=== PATIENT | female | born 1935 | race Caucasian/White ===

== ENCOUNTER 2020-06-30 11:36 | Inpatient (IN) | payer MEDICARE ==
[~2020-06-30] VITALS: Ht 170.2 cm; Wt 56.7 kg
[2020-06-30 12:12] VITALS: BP 153/66
[2020-06-30 12:20] LABS: APPEARANCE,URINE CLEAR (CLEAR); BILIRUBIN,URINE NEGATIVE (NEGATIVE); UA COLOR YELLOW (YELLOW); UROBILINOGEN,URINE NORMAL (NEGATIVE)
[2020-06-30 12:23] LABS: BASOPHIL % 0.5 % (0.0-0.2); EOSINOPHIL # 0.1 10^3/uL (0.0-0.2); EOSINOPHIL % 2.7 % (0.0-5.0); LYMPHOCYTES # 1.13 10^3/uL1 (1.0-4.8); LYMPHOCYTES % 30.8 % (24.0-44.0); MEAN CORP HGB 31.4 pg (26-34); MONOCYTES # 0.3 10^3/uL (0.3-0.8); MONOCYTES % 6.8 % (5.0-12.0); NEUTROPHIL # 2.2 10^3/uL (1.8-7.7); NEUTROPHILS % 59.2 % (41.0-85.0); PLATELET COUNT 191 10^3/uL (150-400); RED CELL DISTRIBUTION WIDTH 11.9 % (11.5-14.5)
--- NOTE | 2020-06-30 12:25 | PCM.EKG ---
[facility] Test Date: 2020-06-30 Test Time: 12:22:45 Pat Name: ELBERT ROMERO Department: Room: 213 Gender: F Dispatcher Radio: ZACK : [id number] Requested By: MAIRA SHERWOOD Order Number: [id number] Reading MD: Maira SHERWOOD Measurements Intervals [place] Rate: 61 P: WI: 287 QRS: -49 QRSD: 113 T: 45 QT: 454 QTc: 458 Interpretive Statements Atrial-paced rhythm LAD, consider left anterior fascicular block Left ventricular hypertrophy Anterior Q waves, possibly due to LVH No previous ECG available for comparison Electronically Signed On 07-01-2020 1:09:20 [employer]ENT[employer] by Maira SHERWOOD Please click the below link to view image of tracing.
--- NOTE | 2020-06-30 12:35 | NUR ---
ARRIVAL PT ARRIVED TO ED FOR MED CLEARANCE. FAMILY WANT PT TO BE ADMITTED FOR HX OF BIPOLAR AND DEPRESSION. BEDSIDE MONITOR APPLIED. VITALS STABLE. NAD NOTED.
--- NOTE | 2020-06-30 12:41 | ER.PDOC ---
General Chief Complaint: Medical Clearance Stated Complaint: MEDICAL CLEARANCE Time seen by MD: 12:34 Source: patient Exam Limitations: no limitations History of Present Illness Initial Comments Medical clearance to go to [facility] for delusional disorder for 2 Months. Severity: moderate Associated Symptoms: Paranoid Allergies: Coded Allergies: Penicillins (Verified Allergy, Unknown, unknown, 06/30/20) Sulfa (Sulfonamide Antibiotics) (Verified Allergy, Unknown, 06/30/20) celecoxib (Verified Allergy, Unknown, 06/30/20) Home Meds Reported Medications Divalproex Sodium (DEPAKOTE ER) 250 Mg Tab.er.24h, 2000 MG PO DAILY24, TABLET 06/30/20 Venlafaxine Hcl (EFFEXOR XR) 37.5 Mg Cap.er.24h, 75 MG PO DAILY24, CAPSULE 06/30/20 Multivitamin (Multi Vitamin Daily) 1 Each Tablet, 1 TAB PO QD for 30 Days, #30 TAB 0 Refills 06/30/20 Aspirin (ASPIRIN) 81 Mg Tab.chew, 1 TAB PO DAILY, #90 TAB 3 Refills 06/30/20 Furosemide (FUROSEMIDE) 20 Mg Tablet, 20 MG PO 3x weekly, TAB 06/30/20 Metoprolol Tartrate 25MG (LOPRESSER 25MG) 25 Mg Tablet, 1 TAB PO BID, #60 TAB 5 Refills 06/30/20 Docusate Sodium (DOCUSATE SODIUM) 100 Mg Capsule, 1 CAP PO BID for constipation for 15 Days, #30 CAP 0 Refills 06/30/20 Amlodipine Besylate (AMLODIPINE BESYLATE) 10 Mg Tablet, 1 TAB PO DAILY, #90 TAB 3 Refills 06/30/20 Venlafaxine Hcl (VENLAFAXINE HCL) 75 Mg Tablet, 75 MG PO HS, TAB 06/30/20 Simvastatin (SIMVASTATIN) 40 Mg Tablet, 1 TAB PO HS, #90 TAB 3 Refills 06/30/20 Gabapentin (NEURONTIN) 300 Mg Capsule, 1 CAP PO HS, #90 CAP 06/30/20 Memantine Hcl (NAMENDA) 10 Mg Tablet, 21 TAB PO DAILY24, #180 TAB 3 Refills 06/30/20 Donepezil Hcl (DONEPEZIL HCL) 10 Mg Tablet, 1 TAB PO DAILY, #90 TAB 3 Refills 06/30/20 Levothyroxine Sodium (LEVOTHYROXINE SODIUM) 75 Mcg Tablet, 1 TAB PO DAILY, #90 TAB 3 Refills 06/30/20 Past Medical History Medical History: cardiac problems, high cholesterol, hypertension, renal disease, thyroid disease Surgical History: hysterectomy, knee, pacemaker/ICD Social History Alcohol Use: none Drug Use: none Review of Systems Constitutional: no symptoms reported EENTM: no symptoms reported Respiratory: no symptoms reported Cardiovascular: no symptoms reported Gastrointestinal: no symptoms reported Genitourinary: no symptoms reported Psychiatric/Neurological: see HPI All Other Systems: Reviewed and Negative Physical Exam General Appearance: No acute distress, Alert Neck: Non-Tender, Full Range of Motion, Supple, Normal Inspection Respiratory: chest non-tender, lungs clear, normal breath sounds, no respiratory distress, no accessory muscle use Cardiovascular: Normal Peripheral Pulses, Regular Rate, Rhythm, No Edema, No Gallop, No JVD, No Murmur Gastrointestinal: Normal Bowel Sounds, No Organomegaly, No Pulsatile Mass, Non Tender, Soft Extremities: Non-Tender, Normal Range of Motion, No Evidence of Trauma, No Edema Neurological/Psychiatric: Alert, Normal Mood/Affect, Calm, steak sauce maker II-XII NML as Tested, Oriented x 3 Appearance/Memory/Insight: Appropriate Appearance, Appropriate Insight, Neat, No Memory Impairment Behavior/Eye Contact/Speech: Cooperative, Good Eye Contact, Normal Speech Thoughts/Hallucinations: Normal Thought Pattern, No Apparent Hallucination, Delusions Skin: Normal Color Results/Orders Results/Orders Orders - MAIRA SHERWOOD MD Cbc With Auto Diff (06/30/20 12:06) Comprehensive Metabolic Panel (06/30/20 12:06) Urinalysis (06/30/20 12:06) Thyroid Stimulating Horm(Ml) (06/30/20 12:06) Drug Scrn Med W Confirmation (06/30/20 12:06) Vitamin D, 25 Hydroxy (06/30/20 12:06) RPR (06/30/20 12:06) Hemoglobin A1c(Ml) (06/30/20 12:06) Lipid Panel(Ml) (06/30/20 12:06) Troponin I (06/30/20 12:06) Creatine Kinase (06/30/20 12:06) Creatine Kinase Mb (06/30/20 12:06) Ekg-Routine (06/30/20 12:06) Vital Signs Date Time Temp Pulse Resp B/P (MAP) Pulse Ox O2 Delivery O2 Flow Rate FiO2 06/30/20 12:12 96.7 70 18 100 06/30/20 12:12 96.7 70 18 06/30/20 12:12 96.7 70 18 153/66 (95) 100 Room Air Laboratory Tests Test 06/30/20 12:08 06/30/20 12:10 06/30/20 12:15 Urine Collection Type UNKNOWN Urine Color YELLOW (YELLOW) Urine Appearance CLEAR (CLEAR) Urine Bilirubin NEGATIVE MG/DL (NEGATIVE) Urine Ketones NEGATIVE (NEGATIVE) Urine Specific [place] 1.020 (1.005-1.035) Urine pH 5.5 (5.0-6.0) Urine Protein NEGATIVE (NEGATIVE) Urine Urobilinogen NORMAL (NEGATIVE) Urine Nitrate NEGATIVE (NEGATIVE) Urine Leukocyte Esterase 25 /uL TRACE (NEGATIVE) Urine Blood MODERATE (NEGATIVE) Urine RBC 2-5 RBC/HPF (NONE SEEN) Urine WBC 0-2 WBC/HPF (0-2) Urine Squamous Epithelial Cells FEW #/HPF (FEW) Urine Bacteria NONE SEEN (NONE SEEN) Urine Glucose NORMAL (NEGATIVE) Urine Opiates Screen NEGATIVE (c/o300ng/mL) Urine Methadone Screen NEGATIVE (c/o300ng/mL) Urine Barbiturates Screen NEGATIVE (c/o200ng/mL) Urine Phencyclidine Screen NEGATIVE (c/o 25ng/mL) Ur Amphetamine/Methamphetamine NEGATIVE (ib8251qs/mL) Urine MDMA Screen (Ecstasy) NEGATIVE (c/o300ng/mL) Urine Benzodiazepines Screen NEGATIVE (c/o200ng/mL) Urine Cocaine Metabolite Screen NEGATIVE (c/o300ng/mL) Ur Tetrahydrocannabinol (THC) Scrn NEGATIVE (c/o 50ng/mL) White Blood Count 3.7 10^3/uL (4.5-11.0) L Red Blood Count 3.88 10^6/uL (4.00-5.20) L Hemoglobin 12.2 g/dL (12.0-15.0) Hematocrit 36.6 % (36.0-46.0) Mean Corpuscular Volume 94.3 fL (78-100) Mean Corpuscular Hemoglobin 31.4 pg (26-34) Mean Corpuscular Hemoglobin Concent 33.3 g/dL (33-36.5) Red Cell Distribution Width 11.9 % (11.5-14.5) Platelet Count 191 10^3/uL (150-400) Mean Platelet Volume 9.4 fL (7.8-11.0) Neutrophils (%) (Auto) 59.2 % (41.0-85.0) Lymphocytes (%) (Auto) 30.8 % (24.0-44.0) Monocytes (%) (Auto) 6.8 % (5.0-12.0) Neutrophils # (Auto) 2.2 10^3/uL (1.8-7.7) Lymphocytes # (Auto) 1.13 10^3/uL1 (1.0-4.8) Monocytes # (Auto) 0.3 10^3/uL (0.3-0.8) Absolute Immature Granulocyte (auto 0 10^3 u/L (0-2) Absolute Eosinophils (auto) 0.1 10^3/uL (0.0-0.2) Immature Granulocytes % 0.00 % (0.00-0.50) Eosinophils % 2.7 % (0.0-5.0) Basophils % 0.5 % (0.0-0.2) H Basophils # 0.0 10^3/uL (0.0-0.1) Sodium Level 140 mmol/L (132-145) Potassium Level 4.2 mmol/L (3.6-5.2) Chloride Level 106.0 mmol/L (96-109) Carbon Dioxide Level 25.3 mmol/L (20.0-32) Anion Gap 12.9 Blood Urea Nitrogen 37 mg/dL (7-18) H Creatinine 2.11 mg/dL (0.59-1.40) *H Estimated GFR () 27.1 (>/=60) Est GFR (CKD-EPI)(Non-Afr [place]ayan) 22.4 (>/=60) BUN/Creatinine Ratio 17.0 Glucose Level 85 mg/dL (70-110) Hemoglobin A1c 5.5 % (0-5.7) Calcium Level 9.0 mg/dL (8.4-10.5) Total Bilirubin 0.4 mg/dL (0.2-1.0) Aspartate Amino Transferase (AST) 18 U/L (0-35) Alanine Aminotransferase (ALT) 16 U/L (12-78) Alkaline Phosphatase 100 U/L (50-136) Total Creatine Kinase 37 U/L (26-192) Creatine Kinase MB 0.7 ng/mL (0.5-3.6) Troponin I < 0.02 ng/mL (0.00-0.05) Total Protein 6.4 g/dL (6.4-8.2) Albumin 3.1 g/dL (3.4-5.0) L Globulin 3.3 Albumin/Globulin Ratio 0.939 Triglycerides Level 92 mg/dL (20-200) Cholesterol Level 132 mg/dL (120-240) LDL Cholesterol, Calculated 61.6 VLDL Cholesterol, Calculated 18.4 HDL Cholesterol 52 mg/dL (32-96) Cholesterol Ratio (LDL/HDL) 1.1 Cholesterol/HDL Ratio [id number] Thyroid Stimulating Hormone (TSH) 0.023 mIU/mL (0.358-3.740) EKG/XRAY/CT/US EKG: NSR, LVH, nonspecific ST T wave chg EKG Comments: Atrial paced rythm ER DEPART Departure Time of Disposition: 13:19 Disposition: 09 ADMITTED INPATIENT Impression: Primary Impression: Delusional disorder Condition: Stable Referrals: WHIT HERNANDEZ (PCP) PRIMARY CARE PROVIDER Comments Patient admitted to [facility] for Dr. Arroyo. Duration or Time Spent with Pa: 45 min MAIRA SHERWOOD MD Jun 30, 2020 12:41
[2020-06-30 12:48] LABS: ALANINE AMINOTRANSFERASE(ML) 16 U/L (12-78); ALKALINE PHOSPHATASE 100 U/L (50-136); ASPARTATE AMINO TRANSFERASE 18 U/L (0-35); CARBON DIOXIDE 25.3 mmol/L (20.0-32); CHOLESTEROL 132 mg/dL (120-240); GLUCOSE 85 mg/dL (70-110); HDL CHOLESTEROL 52 mg/dL (32-96)
[2020-06-30] MEDS ORDERED: MULT-632 PO (13:03)
[2020-06-30] MEDS ORDERED: AMLO-170 PO (13:03)
[2020-06-30] MEDS ORDERED: METO25TA4 PO (13:03)
[2020-06-30] MEDS ORDERED: SIMV40TA20 PO (13:03)
[2020-06-30] MEDS ORDERED: FURO20TA3 PO (13:03)
[2020-06-30] MEDS ORDERED: GABA300C PO (13:03)
[2020-06-30] MEDS ORDERED: DONE10TA7 PO ×2 (13:03→18:17)
[2020-06-30] MEDS ORDERED: LEVO75TA6 PO (13:03)
[2020-06-30] MEDS ORDERED: MEMA10TA PO ×2 (13:03→18:17)
[2020-06-30] MEDS ORDERED: VENL37.5 PO (13:03)
[2020-06-30] MEDS ORDERED: DIVA250T PO (13:03)
[2020-06-30] MEDS ORDERED: VENL75TA PO (13:03)
[2020-06-30] MEDS ORDERED: ASPI-667 PO (13:03)
[2020-06-30] MEDS ORDERED: DOCU100C28 PO (13:03)
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
--- NOTE | 2020-06-30 17:15 | NUR ---
TELEMED PT WAS SEEN BY DR. FINN VIA TELEMED. RECEIVED ORDERS FOR PRN ZYPREXA, AND TO CONTINUE SCHEDULED NAMENDA, ARICEPT, AND DEPAKOTE, SEE EMR.
[2020-06-30] MEDS ORDERED: CALC3.7S5 (18:17)
[2020-06-30] MEDS ORDERED: MELA10TA2 PO (18:17)
[2020-06-30] MEDS ORDERED: ATOR10TA PO (18:17)
[2020-06-30] MEDS ORDERED: DIVA500T4 PO (18:17)
[2020-06-30] MEDS ORDERED: LATANOPROST 0.005% BOTH EYES (18:17)
[2020-06-30] MEDS ORDERED: FLUT16SP (18:17)
--- NOTE | 2020-06-30 19:30 | NUR ---
PICTURE PT. REFUSED TO LET THIS NURSE TAKE A PICTURE OF HER JEWELRY AND REFUSED TO LET THIS NURSE PUT IT IN SAFE WITH SECURITY.
[2020-06-30 20:00] VITALS: BP 159/65
--- NOTE | 2020-06-30 20:00 | NUR ---
ASSESSMENT PT. REFUSED NURSING ASSESSMENT AND SKIN ASSESSMENT.
[2020-06-30] MEDS: NEURONTIN PO SCH (21:00)
[2020-06-30] MEDS ORDERED: MELATONIN PO PRN (21:00)
[2020-06-30] MEDS: NAMENDA PO SCH (21:00)
[2020-06-30] MEDS ORDERED: EFFEXOR PO SCH (21:00)
[2020-06-30] MEDS ORDERED: DEPAKOTE ER PO SCH (21:00)
[2020-06-30] MEDS ORDERED: EFFEXOR XR PO SCH (21:17)
--- NOTE | 2020-06-30 21:34 | NUR ---
Medication Pt. offered HS medication several times , she states NO, attempted to educate pt she still states NO.
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
--- NOTE | 2020-07-01 00:44 | NUR ---
behaviors PT. HAS BEEN ENCOURAGED BY SEVERAL STAFF ON MULTIPLE OCCASIONS TO GO TO BED BUT PT. REFUSED AND CONTINUED TO SIT ON HER WALKER IN THE HALLWAY. WILL CONTINUE TO ENCOURAGE PT.
[2020-07-01] MEDS ORDERED: EFFEXOR XR PO SCH (01:30)
[2020-07-01] MEDS ORDERED: LASIX PO SCH (01:30)
--- NOTE | 2020-07-01 02:00 | NUR ---
behaviors PT. CONTINUES TO SIT IN THE HALLWAY ON WALKER. THIS NURSE ENCOURAGED PT. AGAIN TO GO TO BED. PT. TOLD THIS NURSE NO AND FOR ME TO GO ON TO BED.
--- NOTE | 2020-07-01 02:31 | NUR ---
BEHAVIORS DR. FINCH CAME TO SEE PT. AND PT. WOULDN'T ANSWER ANY QUESTION ASKED HER . PT. ENCOURAGED AGAIN BY DR. FINCH AND Sam PRIEST LVN. PT. REFUSED . PT. TOLD Sam PRIEST LVN ,"IT'S OK,I WILL SEE YOU IN THE MORNING." PT. SITTING IN HALLWAY WITH EYES CLOSED AT TIMES. ON SEVERAL OCCASIONS STAFF HAS ENCOURAGED PT. TO GO TO BR BUT SHE REFUSED. PT. HAS BEEN TOLD WHERE HER ROOM IS BUT REFUSES TO GO TO HER ROOM.
--- NOTE | 2020-07-01 05:54 | NUR ---
ARRIVAL TO UNIT PT. WAS ON UNIT FOLLOWING SHIFT CHANGE. PREVIOUS SHIFT STATED PT. ARRIVED AT 1315 . PT. IS A 84 YEAR OLD FEMALE WHO HAS BEEN LIVING WITH HER SON FOR THE LAST TWO WEEKS DUE TO [facility] [place] WILL NOT LET HER COME BACK THERE. SHE WAS REPORTEDLY EXHIBITING AGGRESSIVE AND AGITATED BEHAVIORS AT [facility]. PT. INVOLUNTARY STATUS. DX. DELUSIONAL D/O. THE PLAN AT THIS TIME IS FOR PT. TO GO TO [facility] WHEN DISCHARGED. VERBAL ORDERS HAVE BEEN RECEIVED FROM DR. ABDI. PT. WALKS WITH A WALKER AT TIMES. SHE IS ORIENTED TO NAME NOT YEAR OR MONTH. FLAT AFFECT. [place] AND DOES NOT HAVE HEARING AIDS.
--- NOTE | 2020-07-01 06:03 | NUR ---
BEHAVIORS PT. HAS SAT ON WALKER AT THE END OF HALLWAY ALL NIGHT. EFFORTS ENCOURAGING PT. TO GO TO BED SO SHE WILL BE MORE COMFORTABLE HAVE BEEN UNSUCCESSFUL UNTIL NOW AND PT. IS IN HER BR. LAB HERE TO DRAW LABS ORDERED.
[2020-07-01 07:14] LABS: CARBON DIOXIDE 24.7 mmol/L (20.0-32)
[2020-07-01 08:33] VITALS: BP_SYST 106; BP_SYST 158; BP_DIAS 51; BP_DIAS 60
[2020-07-01 08:59] VITALS: BP 140/70
[2020-07-01] MEDS: FLONASE NS SCH (09:00)
[2020-07-01] MEDS: ARICEPT ODT PO SCH (09:01)
[2020-07-01] MEDS: NORVASC PO SCH (09:01)
[2020-07-01] MEDS: THERA PO SCH ×2 (09:01→09:03)
[2020-07-01] MEDS: COLACE PO SCH ×2 (09:02→20:36)
[2020-07-01] MEDS: LOPRESSER PO SCH ×2 (09:02→20:37)
[2020-07-01] MEDS: ASPIRIN PO SCH (09:02)
[2020-07-01] MEDS: NAMENDA PO SCH ×2 (09:02→20:37)
--- NOTE | 2020-07-01 13:08 | PRM.PN ---
Mood: negative mood Sleep: 4 hours in the morning Appetite: 50% at lunch, slept through breakfast, gets distracted Suidical thoughts: does not make statements Homicidal thoughts: does not make statements Recent stressors: snf asked her to leave Family support: son and his daughter, Aggressive Behavior: has not been aggressive at hospital - was with family and snf Ability to Perform ADL'sc: staff assist, she can help, follows simple commands Psychotic sympstoms: not picking at items in air Manic Symptoms: not hyperactive today, ambulating more in evening Living situation: asked to leave snf Illicit Drug usec: na Alcoholo use: na Tobacco use: na Family,PT,Surgical,&Current HX: (1) Delusional disorder (2) Dementia Anxity Symptoms: no Anger/Irritablility: declines meds, some cares, today can redirect Muscle Strength & Tone: Rigidity Gait & Station: Ataxic (uses walker, ) Appearance: Well groomed/hygience Attitude & Behaviour: Cooperative/Pleasant Mood & Affect: Constricted Orientation: Disoriented to place, Disoriented to time, Disoriented to situation Attention/Concentration: Fair attention, Fair concentration Speech: Reg rate/vol/rhyth/prosod Judgement/Insight: Poor judgement, Poor insight Thought Process: Circumferential Language: Malay Thought content/Abnormal/Psych: Delusions (perceptions are not accurate, due to dementia) Fund of Knowledge: [facility] Associations: Other Constitutional: None Neurological: None Psychiatric: Psychosis (perceptions not well ) [place] I: delusional disorder, dementia [place] IV: between snf placements Assessment/Plan Assessment/Plan Plan Dr. Ricky JacintoP 06/30/2020 84 yo F, admitted to [facility] for worsening mood/aggression. Per report, she was functional at a [facility] about 2 months ago, was taking care of herself. She had a sudden decline, stopped taking her medications, was put in a SNF. She became aggressive there, was running after other residents with a walker, going into other people's rooms and being combative. She was kicked out of the SNF, has been home with family, has been aggressive toward them. Patient refusing to go to treatment team room. She was seen in hallway per her preference. She was very irritable, not cooperative. She stated "I feel great" as a response to most of my questions. When asked orientation questions, she said, "I know the answers, but I'm not going to tell you." Past Psych Hx: Depression, Bipolar per family Past Medical Hx: Dementia Social Hx: Was at SNF, got kicked out 1) Continue DepakoteER 1000mg PO QHS for mood 2) Continue Namenda 10mg PO BID for memory 3) Continue Aricept 10mg PO Daily for memory 4) Continue Zyprexa 10mg PO/IM Q6hrs PRN for psychosis 5) Order labwork -- valproic acid, ammonia, RPR, B12/Folate 6) Appreciate hospitalist assistance with medical issues 07/01/2020 Nursing she did not sleep all night refused all evening medications, she sat on her walker by the exit door this morning she slept 4-5 hours, negative mood cooperative and took medications this morning after waking. patient: I know where [facility] is always in [place], [place], grew up, first place I lived in was, not [place], grew up with brothers and sisters, talks "somewhat" children Boys and girls, work- yes I did, um, let's see, I had chldren and grandchildren, no great grandchildren yet, 84- takes moment, denies sx of UTI, I took medications its all taken care of, do you have memory issues, "not really" denies depression, denies sad/tearful, I stay the same, no pain today, Laboratory Tests 07/01/20 06:06: Sodium Level 140, Potassium Level 4.5, Chloride Level 106.0, Carbon Dioxide Level 24.7, Glucose Level 114H, Blood Urea Nitrogen 49H, Creatinine 2.24*H, Calcium Level 10.0, Anion Gap 13.8, Estimated GFR () 25.3, Est GFR (CKD-EPI)(Non-Afr French) 20.9, BUN/Creatinine Ratio 21.0, Phosphorus Level 4.3, Magnesium Level 2.2, Ammonia 11, Triglycerides Level 94, Cholesterol Level 159, LDL Cholesterol, Calculated 76.2, VLDL Cholesterol, Calculated 18.8, HDL Cholesterol 64, Cholesterol Ratio (LDL/HDL) 1.1, Cholesterol/HDL Ratio 2.765273, Vitamin B12 Level 505, Folate 30.3, Procalcitonin < 0.05L, Valproic Acid (Depakene) Level 33L Vital Signs Date Time Temp Pulse Resp B/P (MAP) Pulse Ox O2 Delivery O2 Flow Rate FiO2 07/01/20 09:02 63 140/70 07/01/20 08:33 97.3 20 98 Room Air Allergies Coded Allergies Type Severity Reaction Last Updated Verified Penicillins Allergy Unknown unknown 06/30/20 Yes Sulfa (Sulfonamide Antibiotics) Allergy Unknown 06/30/20 Yes celecoxib Allergy Unknown 06/30/20 Yes Current Medications Medications (Trade) Dose Ordered Sig/Danish PRN Reason Start Time Stop Time Status Last Admin Amlodipine Besylate (Norvasc) 10 mg DAILY 07/01/20 09:00 07/31/20 08:59 07/01/20 09:01 Aspirin (Aspirin) 81 mg DAILY 07/01/20 09:00 07/31/20 08:59 07/01/20 09:02 Atorvastatin Calcium (Lipitor) 10 mg HS 07/01/20 21:00 07/31/20 20:59 Divalproex Sodium (Depakote Er) 1,000 mg HS 06/30/20 21:00 07/30/20 20:59 Docusate Sodium (Colace) 100 mg BID 07/01/20 09:00 07/31/20 08:59 07/01/20 09:02 Donepezil HCl (Aricept Odt) 10 mg DAILY 07/01/20 09:00 07/31/20 08:59 07/01/20 09:01 Fluticasone Propionate (Flonase) 1 sprays DAILY 07/01/20 09:00 07/31/20 08:59 Gabapentin (Neurontin) 300 mg HS 06/30/20 21:00 07/30/20 20:59 Latanoprost (Xalatan) 1 drops HS 07/01/20 21:00 07/31/20 20:59 Melatonin (Melatonin) 9 mg HS 07/01/20 21:00 07/31/20 20:59 Melatonin (Melatonin) 9 mg HS PRN INSOMNIA 06/30/20 21:00 07/30/20 20:59 Metoprolol Tartrate (Lopresser) 25 mg BID 07/01/20 09:00 07/31/20 08:59 07/01/20 09:02 Miscellaneous Medication (Namenda) 10 mg BID 06/30/20 21:00 12/24/20 20:59 07/01/20 09:02 summary; she had recently been on antibiotics for UTI - but has hx of kidney disease court committed to hospital, she is not oriented, she does consider my questions, often not able to answer correctly, she has negative look on her face, appears to get overwhelmed with more questions but does not get short with me CONSENT: Consent was obtained by patient for telemedicine visit. Consent was obtained for the presence of staff member throughout encounter. Privacy was maintained throughout encounter PLAN: 1. CONTINUE BEHAVIORAL HEALTH MANAGEMENT. 2. CONTINUE CURRENT MEDICATIONS PRESCRIBED. STAFF AGREEABLE WITH PLAN 3. ALL PATIENT QUESTIONS ANSWERED RELATED TO MEDICATIONS, PLAN OF CARE, AND EXPECTED OUTCOMES. 4. SAFETY PLAN DISCUSSED. 5. Change timing of depakote, appears she may be more cooperative with taking medications in the day 250mg morning, afternoon and 500mg at hs TARAS VIRAMONTES NP Jul 01, 2020 13:08
[2020-07-01] MEDS: DEPAKOTE ER PO SCH ×3 (13:30→20:37)
--- NOTE | 2020-07-01 18:15 | NUR ---
PIRP P: ALTERATION IN MOOD I: PROVIDE AND SUPPORTIVE ENVIRONMENT; PROVIDE MEDICATIONS ORDERED BY PHYSICIAN WITH EXPLANATION OF NEED AND PURPOSE; MONITOR FOR SAFETY EVERY 15 MINUTES; ENCOURAGE ADLs AND SELF CARE, ASSIST NEEDED; PROVIDE ACCESS TO PSYCHIATRIC DAILY; ASSESS FOR DEPRESSION, ANXIETY, SI/HI, VOICES/VISIONS R: ENVIRONMENT ASSESSED FOR SAFETY, ROOM WITHIN VIEW OF NURSES STATION, PATIENT USES HER 4 WHEEL WALKER WITH A STEADY GAIT, WEARING SLIP PROOF SHOES; AGREED TO TAKE ALL MORNING MEDICATIONS, REFUSED 1300 MED; Q 15 MINUTE MONITORING LOGGED; PROVIDED WITH TOOTH BRUSH AND TOOTH PASTE; HAD SEVERAL INCIDENTS OF BEING UNCOOPERATIVE AND RUDE TO STAFF, APOLOGIZED, STATED, "I WAS JUST JOKING," SEEN BY PSYCHIATRIC PROFESSIONAL ELVIRA VIRAMONTES SPRING TIER, REDIRECTED AND REORIENTED; DENIES DEPRESSION, ANXIETY, SI/HI, VOICES/VISIONS P: DC PLANNING TO AN ASSISTED LIVING FACILITY, FAMILY ARRANGING
--- NOTE | 2020-07-01 18:54 | NUR ---
SW ASSESSMENTS: SW ATTEMPTED TO COMPLETE SW ASSESSMENTS. PT IS ONLY ORIENTED TO SELF. PT WAS UNABLE TO STAY ON TOPIC OR ANSWER QUESTIONS APPROPRIATELY. PT WAS UPSET THAT HER FAMILY WOULD SEND HER TO A PLACE LIKE THIS.
--- NOTE | 2020-07-01 19:01 | NUR ---
MMSE: PT UNABLE TO COGNITIVELY PARTICIPATE IN ASSESSMENT. PT IS ONLY ORIENTED TO PERSON. Addendum: 07/01/20 at 2 by Shira Licea LMSW SW Amended: Links added.
[2020-07-01 20:05] VITALS: BP 168/98
[2020-07-01] MEDS: MELATONIN PO SCH (20:36)
[2020-07-01] MEDS: NEURONTIN PO SCH (20:36)
[2020-07-01] MEDS: LIPITOR PO SCH (20:38)
[2020-07-01] MEDS: XALATAN BOTH EYES SCH (20:38)
--- NOTE | 2020-07-01 23:04 | PRM.PN ---
PROGRESS NOTE S/O/A/P DATE: 07/01/20 TIME: 11:05pm SUBJECTIVE: Still very irritable and uncooperative today. Says she's been having substernal and right-sided "burning" chest pain, but did not tell anyone about it sooner. OBJECTIVE: PHYSICAL EXAMINATION: VITAL SIGNS: T 97.8, HR 77, RR 16, BP 168/98, O2 sat 100% RA GENERAL: Resting comfortably in NAD. No family or friends present at bedside. HEENT: NC/AT. PERRLA. EOMI. MMM. Neck is supple. LUNGS: CTAB. No wheezing, rales, or rhonchi. No sign of respiratory distress or cyanosis. HEART: Normal S1S2. No murmurs, rubs, gallops, or thrills. ABDOMEN: Soft. NTTP. No rebound or guarding. Normal BS throughout. EXTREMITIES: No pitting edema. Moving all 4 extremities spontaneously. NEUROLOGIC: Demented. Unable to properly assess due to patient's refusal in following commands. LABORATORY DATA: Reviewed and significant for BUN 49, Cr 2.24, Gluc 114 IMAGING STUDIES: No new imaging studies today. ASSESSMENT / PLAN: 1) Chest Pain R/O ACS: Will check Russ, EKG, Echocardiogram, and CXR. Will also continue ASA and start Protonix. Unfortunately, will not be able to obtain an in-house stress test since there is no Supervisor [employer] M[employer] Rep[employer] business sales consultant today. 2) HTN: Will continue home Amlodipine and Metoprolol, but add Hydralazine TID for better BP control. 3) Hyperglycemia: Will check a HgbA1c. 4) Vitamin D Insufficiency: Will start supplements. 5) Bipolar Disorder with Depression: Continue Tx as per Psychiatry. 6) Dementia: Continue home meds and provide supportive care PRN. 7) Recent UTI: Pt was Dx'd with a UTI on 06/25/20 and started on Cipro. Will follow up on the Urine Cx results. 8) Leukopenia: Will monitor for now. 9) Hypothyroidism with Abnormal TSH: Will hold home Levothyroxine for now. 10) CKD: Pt's baseline Cr is unknown, but her [place] [facility] [place] 2.4. 11) HLD: Continue home Atorvastatin. 12) BL Hearing Loss: Pt says that she does not have her hearing aides with her. Will try to get her Family to bring them for her in AM. 13) GI and DVT prophylaxis: Will start Protonix and continue YAMEL hose with frequent ambulation. KENA FINCH MD Jul 01, 2020 23:04
[2020-07-02] MEDS ORDERED: TYLENOL PO PRN (00:30)
[2020-07-02] MEDS ORDERED: PROTONIX PO ONE (00:30)
--- NOTE | 2020-07-02 00:56 | DIREP ---
PROCEDURE:CHEST 1 VIEW COMPARISON:None. INDICATIONS:pain FINDINGS: LUNGS/PLEURA:Senescent changes. No suspicious airspace consolidation, pleural effusion or pneumothorax is identified. VASCULATURE:Normal. Unremarkable pulmonary vasculature. CARDIAC:The heart is not enlarged. Left-sided cardiac pacing device is present. MEDIASTINUM:Mediastinal contours appear within acceptable limits with calcifications of the aorta. BONES:Degenerative changes of the shoulders and spine. OTHER:Negative. CONCLUSION: 1. Senescent changes without acute cardiopulmonary abnormality. Dictated by: Jesús Pyle M.D. On 07/02/2020 at 00:54 AM
--- NOTE | 2020-07-02 01:31 | PCM.EKG ---
[facility] Test Date: 2020-07-02 Test Time: 01:29:12 Pat Name: ELBERT ROMERO Department: Room: 213 A Gender: F Count Team Member: ANGELICA : [id number] Requested By: KENA FINCH Order Number: [id number] Reading MD: Measurements Intervals [place] Rate: 64 P: 141 CT: 442 QRS: -45 QRSD: 120 T: 59 QT: 456 QTc: 471 Interpretive Statements Pacemaker spikes or artifacts Sinus or ectopic atrial rhythm Prolonged CT interval Nonspecific IVCD with LAD Left ventricular hypertrophy Anterior Q waves, possibly due to LVH Compared to ECG 06/30/2020 12:22:45 Ectopic atrial rhythm now present First degree AV block now present Intraventricular conduction delay now present Atrial-paced complex(es) or rhythm no longer present Ventricular-paced complex(es) or rhythm no longer present Please click the below link to view image of tracing.
[2020-07-02] MEDS ORDERED: NITROSTAT SL PRN (03:30)
--- NOTE | 2020-07-02 06:20 | NUR ---
PIRP- P- ALTERATION IN THOUGHT PROCESS I- PROVIDE MEDICATION ORDERED,PROVIDE SAFE AND SUPPORTIVE ENVIRONMENT AND Q 15 MIN. MONITORING. R- PT. STATED SHE WAS DEPRESSED BECAUSE HER KIDS PUT HER IN HERE BUT WAS UNABLE TO RATE DEPRESSION AND ANXIETY. ATTENDED GROUP,ATE SNACKS AND PARTICIPATED MINIMALLY IN GROUP EXERCISES. TOOK MEDICATION ORDERED. HAS RESTED IN BED WITH EYES CLOSED 5 HOUR OF THIS TIME KIA.DR. FINCH CAME TO UNIT AND VISITED WITH PTNancy ADAM. P- WILL CONTINUE TO PROVIDE 1:1 INTERVENTION ALLOWING PT. TO EXPRESS THOUGHTS AND FEELINGS. PROVIDE MEDICATION EDUCATION.
[2020-07-02 06:24] LABS: BASOPHIL % 0.4 % (0.0-0.2); EOSINOPHIL # 0.2 10^3/uL (0.0-0.2); EOSINOPHIL % 3.1 % (0.0-5.0); LYMPHOCYTES # 1.75 10^3/uL1 (1.0-4.8); LYMPHOCYTES % 31.9 % (24.0-44.0); MEAN CORP HGB 31.6 pg (26-34); MONOCYTES # 0.6 10^3/uL (0.3-0.8); MONOCYTES % 10.9 % (5.0-12.0); NEUTROPHIL # 2.9 10^3/uL (1.8-7.7); NEUTROPHILS % 53.7 % (41.0-85.0); RED CELL DISTRIBUTION WIDTH 11.8 % (11.5-14.5)
[2020-07-02 06:53] LABS: CALCIUM 9.9 mg/dL (8.4-10.5); CARBON DIOXIDE 26.5 mmol/L (20.0-32); GLUCOSE 102 mg/dL (70-110)
--- NOTE | 2020-07-02 07:30 | NUR ---
Notified Dr. Sparks: Dr. Sparks notified of critical lab D-Dimer 0.[address] Sparks will look at lab.
[2020-07-02 08:27] VITALS: BP 119/63
[2020-07-02] MEDS: FLONASE NS SCH (09:00)
[2020-07-02] MEDS ORDERED: VITAMIN D PO SCH ×2 (09:00→09:18)
[2020-07-02] MEDS: COLACE PO SCH ×3 (09:20→21:00)
[2020-07-02] MEDS: THERA PO SCH (09:20)
[2020-07-02] MEDS: ARICEPT ODT PO SCH (09:20)
[2020-07-02] MEDS: ASPIRIN PO SCH (09:20)
[2020-07-02] MEDS: NORVASC PO SCH (09:21)
[2020-07-02] MEDS: LOPRESSER PO SCH ×3 (09:21→21:00)
[2020-07-02] MEDS: DEPAKOTE ER PO SCH ×4 (09:21→21:00)
[2020-07-02] MEDS: APRESOLINE PO SCH ×4 (09:21→21:00)
[2020-07-02] MEDS: NAMENDA PO SCH ×3 (09:21→21:00)
[2020-07-02] MEDS: PROTONIX PO SCH (09:23)
[2020-07-02] MEDS: VITAMIN D PO SCH ×2 (09:47)
--- NOTE | 2020-07-02 17:04 | NUR ---
PIRP: P: ALTERATION THOUGHT PROCESS I: PROVIDE MEDICATIONS ORDERED BY PHYSICIAN. ENCOURRAGE ATTENDANCE AND PARTICIPTION OF ALL GROUPS. PROVIDE SAFE ENVIRONMENT. MONITOR PATIENT FOR PSYCHOTIC SYMPTOMS R: PATIENT HAS TAKEN ALL MEDICATIONS ORDERED. ATTEMPT MADE TO OBTAIN UA BUT PATIENT MISSED HAT. SHE HAS COME OUT FOR MEALS BUT HAS REMAINED IN HER ROOM THE MAJORITY OF THE DAY. SHE HAS EATEN GOOD. SHE DOES NOT REMEMBER WHY SHE IS HERE AND HAS BEEN CALM AND COOPERATIVE AND PLEASANT. P: CONTINUE CURRENT PLAN OF CARE.
[2020-07-02 20:00] VITALS: BP 116/48
[2020-07-02] MEDS: NEURONTIN PO SCH ×2 (20:41→21:00)
[2020-07-02] MEDS: MELATONIN PO SCH ×2 (20:41→21:00)
[2020-07-02] MEDS: LIPITOR PO SCH ×2 (20:42→21:00)
[2020-07-02] MEDS: XALATAN BOTH EYES SCH (20:48)
--- NOTE | 2020-07-02 21:10 | PCM.ECHO ---
APPROVED REPORT EXAM: Comprehensive 2D, Doppler, and color-flow Echocardiogram. Patient Location: IN-PATIENT Rhythm: NSR Indications Chest Pain 2D Dimensions LVOT Diameter 2.40 (1.8-2.4cm) LVEF(%) 47.49 (>50%) M-Mode Dimensions RVDd 1.05 (2.1-3.2cm) Left Atrium(MM) 4.55 (2.5-4.0cm) IVSd 1.20 (0.7-1.1cm) Aortic Root 2.95 (2.2-3.7cm) LVDd 5.30 (4.0-5.6cm) Aortic Cusp Exc 1.60 (1.5-2.0cm) PWd 0.95 (0.7-1.1cm) MV EPSS 0.48 (<0.5cm) IVSs 1.20 cm FS (%) 35.50 % LVDs 3.40 (2.0-3.8cm) ESV(Teich) 48.38 ml PWs 1.50 cm LVEF(%) 64.53 (>50%) Volumes Biplane 2D LV Volumes Biplane 2D LA Volumes LVEDv A4C 112.32 mL LA ESV Index LVESv A4C 58.98 mL Aortic Valve AoV Peak Bong. 1.60 m/s AoV VTI 32.35 cm AO Peak GR. 10.75 mmHg AO Mean GR. 6.60 mmHg LVOT VTI 18.97 cm LVOT Peak Bong. 0.72 m/s SANTOS(VTI)/BSA 2.65 cm2/m2 SANTOS (VTI) 2.65 cm2 AI P 1/2 Time 615.60 ms Mitral Valve MV E Velocity 0.40m/s MR Peak Gr. 93.15mmHg MV A Velocity 0.80m/s E/A Ratio 0.50 TDI Lateral E' P. V 0.04m/s Medial E' P. V 0.05m/s Pulmonary Valve PV Peak Velocity 0.55m/s PV Peak Grad. 1.25mmHg RVOT VTI 13.38cm Tricuspid Valve TR P. Velocity 2.45m/s RAP ESTIMATE 10.00mmHg TR Peak Gr. 24.77mmHg RVSP 34.77mmHg LEFT VENTRICLE The left ventricle is normal size. The left ventricular systolic function is normal. The left ventricular ejection fraction is within the normal range. There is normal left ventricular wall thickness. There is normal LV segmental wall motion. There is no ventricular septal defect visualized. No left ventricle thrombus noted on this study. LVEF is 65-70%. RIGHT VENTRICLE The right ventricle is normal size. The right ventricular systolic function is normal. There is normal right ventricular wall thickness. ATRIA The left atrium size is normal. The right atrium size is normal. The interatrial septum is intact with no evidence for an atrial septal defect. AORTIC VALVE The aortic valve is normal in structure. There is no aortic valvular stenosis. Moderate to severe aortic regurgitation MITRAL VALVE The mitral valve is normal in structure. There is no mitral valve stenosis. Moderate mitral regurgitation. There is no evidence of mitral valve vegetations. TRICUSPID VALVE The tricuspid valve is normal in structure. There is no tricuspid valve stenosis. Moderate to severe tricuspid regurgitation PULMONIC VALVE The pulmonary valve is normal in structure. There is no pulmonic valvular stenosis. Moderate to severe pulmonic regurgitation. GREAT VESSELS The aortic root is normal in size. Pulmonary artery is not well visualized. Aortic arch is not well visualized. The IVC is normal in size and collapses >50% with inspiration. PERICARDIUM There is no pericardial effusion. There is no pleural effusion. Other Information Study Quality: Fair <Conclusion> The left ventricular systolic function is normal. LVEF is 65-70%. Moderate to severe aortic regurgitation Moderate mitral regurgitation. Moderate to severe tricuspid regurgitation Moderate to severe pulmonic regurgitation. Electronically signed by : ALEJANDRO JANG. 07/02/2020 21:10:18
--- NOTE | 2020-07-03 06:34 | NUR ---
pirp- p- ALTERATION IN THOUGHT PROCESS I- PROVIDE MEDICATION ORDERED,PROVIDE SAFE AND SUPPORTIVE ENVIRONMENT,Q 15 MIN. MONITORING AND ENCOURAGE MEDICATION ORDERED. R- PT. ORIENTED TO NAME NOT MONTH OR YEAR. DENIES DEPRESSION AND ANXIETY AND SI. ATTENDED GROUP AND ATE SNACKS. PLEASANT AFFECT. FOLLOWING GROUP, PT. WAS OFFERED AND ENCOURAGED TO TAKE HS MEDICATION AND SHE THREW A CUP OF WATER ON TRAM DRIVER THEN THREW HER TOOTHBRUSH AT TRAM DRIVER AND THEN DEMANDED HER TO GO GET HER ANOTHER TOOTHBRUSH. PT. CONTINUED TO REFUSE MEDICATION. MEDICATION EDUCATION PROVIDED BY SPORTS EQUIPMENT RACKER. RESTING IN BED WITH EYES CLOSED AT THIS TIME. P- WILL CONTINUE TO PROVIDE ENCOURAGEMENT TO TAKE MEDICATION. CONTINUE TO PROVIDE 1:1 INTERVENTION ALLOWING PT. TO EXPRESS THOUGHTS AND FEELINGS.
[2020-07-03 08:48] VITALS: BP 172/75
[2020-07-03] MEDS: FLONASE NS SCH (09:00)
[2020-07-03] MEDS: ARICEPT ODT PO SCH (09:22)
[2020-07-03] MEDS: VITAMIN D PO SCH ×2 (09:22)
[2020-07-03] MEDS: ASPIRIN PO SCH (09:22)
[2020-07-03] MEDS: NAMENDA PO SCH ×3 (09:22→21:00)
[2020-07-03] MEDS: DEPAKOTE ER PO SCH ×5 (09:22→21:00)
[2020-07-03] MEDS: NORVASC PO SCH (09:22)
[2020-07-03] MEDS: THERA PO SCH (09:22)
[2020-07-03] MEDS: COLACE PO SCH ×3 (09:22→21:00)
[2020-07-03] MEDS: APRESOLINE PO SCH ×4 (09:23→21:00)
[2020-07-03] MEDS: LOPRESSER PO SCH ×3 (09:23→21:00)
[2020-07-03] MEDS: PROTONIX PO SCH (09:23)
--- NOTE | 2020-07-03 09:23 | NUR ---
BP RECHECKED / BLOOD PRESSURE RE CHECKED 168/80 MANUAL IN RIGHT ARM.
--- NOTE | 2020-07-03 10:00 | PRM.PN ---
Mood: "I'm great!" Sleep: ok Appetite: ok Suidical thoughts: denies Homicidal thoughts: denies Recent stressors: being inpatient Aggressive Behavior: threw something at nurse aide Ability to Perform ADL'sc: with assistance Psychotic sympstoms: denies Manic Symptoms: denies Living situation: SNF Anxity Symptoms: denies Anger/Irritablility: gets quickly irritated Appearance: Well groomed/hygience, Appears age stated Mood & Affect: Euthymic/appr/congruent, Iabile Orientation: Disoriented to place, Disoriented to time, Disoriented to situati on Attention/Concentration: Fair attention, Fair concentration Speech: Reg rate/vol/rhyth/prosod Judgement/Insight: Poor judgement, Poor insight Thought Process: Linear/goal directed Language: Faroese Thought content/Abnormal/Psych: None/normal Fund of Knowledge: Other Associations: WNL/Normal Associations Memory (recent and remote): Recent memory repaired, Remote memory repaired Constitutional: None Neurological: None Psychiatric: None [place] I: Bipolar, mixed Assessment/Plan Assessment/Plan Assessment/Plan Nursing Patient's mood is labile, can be pleasant cooperative at times, then very irritable at other times patient: Patient answering most questions with "i'm great!" Laboratory Tests 07/01/20 06:06: Sodium Level 140, Potassium Level 4.5, Chloride Level 106.0, Carbon Dioxide Level 24.7, Glucose Level 114H, Blood Urea Nitrogen 49H, Creatinine 2.24*H, Calcium Level 10.0, Anion Gap 13.8, Estimated GFR () 25.3, Est GFR (CKD-EPI)(Non-Afr [place]ib[place]ian) 20.9, BUN/Creatinine Ratio 21.0, Phosphorus Level 4.3, Magnesium Level 2.2, Ammonia 11, Triglycerides Level 94, Cholesterol Level 159, LDL Cholesterol, Calculated 76.2, VLDL Cholesterol, Calculated 18.8, HDL Cholesterol 64, Cholesterol Ratio (LDL/HDL) 1.1, Cholesterol/HDL Ratio 2.327404, Vitamin B12 Level 505, Folate 30.3, Procalcitonin < 0.05L, Valproic A angie (Depakene) Level 33L Vital Signs Date Time Temp Pulse Resp B/P (MAP) Pulse Ox O2 Delivery O2 Flow Rate FiO2 07/01/20 09:02 63 140/70 07/01/20 08:33 97.3 20 98 Room Air Allergies Coded Allergies Type Severity Reaction Last Updated Verified Penicillins Allergy Unknown unknown 06/30/20 Yes Sulfa (Sulfonamide Antibiotics) Allergy Unknown 06/30/20 Yes celecoxib Allergy Unknown 06/30/20 Yes Current Medications Medications (Trade) Dose Ordered Sig/Danish PRN Reason Start Time Stop Time Status Last Admin Amlodipine Besylate (Norvasc) 10 mg DAILY 07/01/20 09:00 07/31/20 08:59 07/01/20 09:01 Aspirin (Aspirin) 81 mg DAILY 07/01/20 09:00 07/31/20 08:59 07/01/20 09:02 Atorvastatin Calcium (Lipitor) 10 mg HS 07/01/20 21:00 07/31/20 20:59 Divalproex Sodium (Depakote Er) 1,000 mg HS 06/30/20 21:00 07/30/20 20:59 Docusate Sodium (Colace) 100 mg BID 07/01/20 09:00 07/31/20 08:59 07/01/20 09:02 Donepezil HCl (Aricept Odt) 10 mg DAILY 07/01/20 09:00 07/31/20 08:59 07/01/20 09:01 Fluticasone Propionate (Flonase) 1 sprays DAILY 07/01/20 09:00 07/31/20 08:59 Gabapentin (Neurontin) 300 mg HS 06/30/20 21:00 07/30/20 20:59 Latanoprost (Xalatan) 1 drops HS 07/01/20 21:00 07/31/20 20:59 Melatonin (Melatonin) 9 mg HS 07/01/20 21:00 07/31/20 20:59 Melatonin (Melatonin) 9 mg HS PRN INSOMNIA 06/30/20 21:00 07/30/20 20:59 Metoprolol Tartrate (Lopresser) 25 mg BID 07/01/20 09:00 07/31/20 08:59 07/01/20 09:02 Miscellaneous Medication (Namenda) 10 mg BID 06/30/20 21:00 07/30/20 20:59 07/01/20 09:02 CONSENT: Consent was obtained by patient for telemedicine visit. Consent was obtained for the presence of staff member throughout encounter. Privacy was ma intained throughout encounter Assessment/Plan 84 yo F, admitted to [facility] for worsening mood/aggression. Patient is a poor historian, seems to be tolerating medications, some decrease in her irritability. Plan 1 CONTINUE BEHAVIORAL HEALTH MANAGEMENT. 2. CONTINUE CURRENT MEDICATIONS PRESCRIBED. 3. ALL PATIENT QUESTIONS ANSWERED RELATED TO MEDICATIONS, PLAN OF CARE, AND EXPECTED OUTCOMES. 4. SAFETY PLAN DISCUSSED. RAI FINN MD Jul 03, 2020 10:00
--- NOTE | 2020-07-03 14:49 | NUR ---
REFUSED MEDICATIONS PT REFUSED DEPAKOTE 250 MG AND HYDRALAZINE 25 MG . PT VITAL SIGNS WERE TAKEN B/P WAS 136/83 PULSE RATE WAS 78.
--- NOTE | 2020-07-03 17:23 | NUR ---
pirp- p- ALTERATION IN THOUGHT PROCESS I- PROVIDE MEDICATION ORDERED,PROVIDE SAFE AND SUPPORTIVE ENVIRONMENT,Q 15 MIN. MONITORING AND ENCOURAGE MEDICATION ORDERED. R- DENIES DEPRESSION AND ANXIETY AND SI. ATTENDED GROUP AND ATE SNACKS. PT TOOK ALL MORNING MEDICATIONS. PT DID NOT TAKE 1500 HYDRALAZINE OR 1300 DEPAKOTE. MEDICATION EDUCATION GIVEN BY REHAB THERAPY MANAGER. PT STILL DENIED MEDICATIONS AT THIS TIME. P- WILL CONTINUE TO PROVIDE ENCOURAGEMENT TO TAKE MEDICATION. CONTINUE TO PROVIDE MEDICATION EDUCATION. CONTINUE TO PROVIDE 1:1 INTERVENTION ALLOWING PT. TO EXPRESS THOUGHTS AND FEELINGS.
[2020-07-03 19:47] VITALS: BP 126/67
[2020-07-03] MEDS: MELATONIN PO SCH ×2 (20:49→21:00)
[2020-07-03] MEDS: NEURONTIN PO SCH ×2 (20:50→21:00)
[2020-07-03] MEDS: LIPITOR PO SCH ×2 (20:50→21:00)
[2020-07-03] MEDS: XALATAN BOTH EYES SCH (20:53)
--- NOTE | 2020-07-03 21:45 | NUR ---
Medication Pt.offered HS medication tonight she stated she would take them but she wanted to see them first, pt. took meds and put some between her legs and then she held some in her hands she acted like she took a medication, then started yelling at the nurse that she did not want anyone telling her want to do pt.stood and pills fell on floor and she stated I am sure not going to take any of them now, Pt. told other nurses that she already taken her meds and was not going to take any more
--- NOTE | 2020-07-03 23:46 | PRM.PN ---
PROGRESS NOTE S/O/A/P DATE: 07/03/20 TIME: 11:45pm SUBJECTIVE: Per RN, patient refusing to take her meds at times. She also remains intermittently hostile with frequent mood swings. No further episodes of chest pain. OBJECTIVE: PHYSICAL EXAMINATION: VITAL SIGNS: T 96.7, HR 69, RR 18, BP 126/67, O2 sat 97% RA GENERAL: Resting comfortably in NAD. No family or friends present at bedside. HEENT: NC/AT. PERRLA. EOMI. MMM. Neck is supple. LUNGS: CTAB. No wheezing, rales, or rhonchi. No sign of respiratory distress or cyanosis. HEART: Normal S1S2. +1/6 systolic murmur LSB. ABDOMEN: Soft. NTTP. No rebound or guarding. Normal BS throughout. EXTREMITIES: No pitting edema. Moving all 4 extremities spontaneously. NEUROLOGIC: Demented. Unable to properly assess due to patient's refusal to follow commands. LABORATORY DATA: Reviewed and significant for BUN 47, Cr 2.03, HgbA1c 5.4, Hgb 11.9, Hct 35.2, D-dimer 0.70, BNP 1094, TPN <0.02 x3 IMAGING STUDIES: 1) CXR: Senescent changes without acute CP abnormalities. Left pacing device. 2) Echocardiogram: LVEF 65-70%. Mod-Sev AR/TR/LA. Mod MR. ASSESSMENT / PLAN: 1) Chest Pain R/O ACS: No further episodes of CP overnight. Russ and Echocardiogram are essentially negative for acute abnormalities. Pt will need to follow up with her PCP/[facility] on [place] for possible outpatient stress test since one cannot be done inpatient at this time. 2) Elevated D-dimer: VQ scan has been ordered to R/O PE as a cause of her symptoms and is still pending at this time. 3) Valvular Heart Disease: Patient is not a candidate for surgery. Monitor for now. 4) HTN: Will continue Amlodipine, Metoprolol, and Hydralazine. 5) Hyperglycemia: HgbA1c 5.4. Pt is not diabetic. 6) Vitamin D Insufficiency: Will continue supplements. 7) Bipolar Disorder with Depression: Continue Tx as per Psychiatry. 8) Dementia: Will continue home meds and provide supportive care PRN. 9) Recent UTI: Pt was Dx'd with a UTI on 06/25/20 and started on Cipro. Will follow up on the Urine Cx results. 10) Leukopenia: Will monitor for now. 11) Hypothyroidism with Abnormal TSH: Will hold home Levothyroxine for now. 12) CKD: Pt's baseline Cr is unknown, but [place] on 06[place]25/20 [place] [facility] [place] 2[place]. 13) HLD: Will continue home Atorvastatin. 14) BL Hearing Loss: Pt says that she does not have her hearing aides with her. Will continue supportive care for now. 15) GI and DVT prophylaxis: Will continue Protonix and YAMEL hose with frequent ambulation. KENA FINCH MD Jul 03, 2020 23:46
--- NOTE | 2020-07-04 01:45 | NUR ---
DR JOSETTE FINCH IN TO SEE PATIENT, BNP AND D DIMER RESULTS REVIEWED, NEW ORDER FOR NM LUNG/VENT/PERF. FOR 07/04/2020. MAY BE DONE DURING REGULAR NUCLEAR MED BUSINESS HOURS PER DR FINCH.
--- NOTE | 2020-07-04 06:19 | NUR ---
P.I.R.P. P. ALTERATION IN THOUGHT PROCESS. I. PROVIDE EVERY 15 MINUTE CHECKS, PROVIDE SAFE ENVIRONMENT, PROVIDE MEDICATIONS ORDERED PER MD, PROVIDE 1:1 INTERVENTION TO ALLOW PATIENT TO EXPRESS FEELINGS. MONITOR FOR CHANGES IN COGNITIVE STATUS. R. PATIENT REFUSED HS MEDS, VOICED MULTIPLE TIMES SHE HAD ALREADY TAKEN HER MEDS, PATIENT WAS PLEASANT LONG DID NOT OFFER HER MEDICATIONS. PATIENT WANDERED IN AND OUT OF HER AND OTHER AREAS AT TIMES. DENIED ANXIETY, DENIED DEPRESSION, DENIES SUICIDAL IDEATIONS. P. CONTINUE CURRENT PLAN OF CARE.
[2020-07-04 08:19] VITALS: BP 158/64
[2020-07-04] MEDS: PROTONIX PO SCH ×2 (09:43→09:44)
[2020-07-04] MEDS: ASPIRIN PO SCH ×2 (09:43→09:44)
[2020-07-04] MEDS: DEPAKOTE ER PO SCH ×2 (09:43→09:44)
[2020-07-04] MEDS: APRESOLINE PO SCH ×3 (09:43→21:00)
[2020-07-04] MEDS: LOPRESSER PO SCH ×3 (09:43→21:00)
[2020-07-04] MEDS: THERA PO SCH ×2 (09:43→09:44)
[2020-07-04] MEDS: NAMENDA PO SCH ×2 (09:43→09:44)
[2020-07-04] MEDS: VITAMIN D PO SCH ×3 (09:43→09:44)
[2020-07-04] MEDS: COLACE PO SCH ×3 (09:43→21:00)
[2020-07-04] MEDS: ARICEPT ODT PO SCH (09:44)
[2020-07-04] MEDS: NORVASC PO SCH (09:44)
[2020-07-04] MEDS: FLONASE NS SCH (09:44)
--- NOTE | 2020-07-04 11:05 | PRM.PN ---
Mood: irritable, Sleep: 8 hours Appetite: picky eater, this morning ate most breakfast Suidical thoughts: does not make statements Homicidal thoughts: does not make statements Recent stressors: wants to leave Family support: family calls to check on her Aggressive Behavior: has not hit staff Ability to Perform ADL'sc: staff asssit, mostly standby Psychotic sympstoms: does not respond to internal Manic Symptoms: can be exit seeking Living situation: discharge to snf Illicit Drug usec: na Alcoholo use: na Tobacco use: na Family,PT,Surgical,&Current HX: (1) Delusional disorder (2) Dementia Anxity Symptoms: can sit calm and relaxed, colors in room Anger/Irritablility: easily annoyed, Muscle Strength & Tone: Rigidity Gait & Station: Ataxic (uses walker) Appearance: Well groomed/hygience Attitude & Behaviour: Cooperative/Pleasant (she is calm at first, engages, then annoyed with medication discussion), Hostile Mood & Affect: Constricted Orientation: Disoriented to place, Disoriented to time, Disoriented to situation Attention/Concentration: Fair attention, Fair concentration Speech: Pressured Judgement/Insight: Poor judgement, Poor insight Thought Process: Circumferential Language: [place] Thought content/Abnormal/Psych: Delusions (perceptions not accurate) Fund of Knowledge: WNL Associations: Other Constitutional: None Neurological: None Psychiatric: Psychosis (perceptions not accurate) [place] I: dementia delusional disorder [place] IV: discharge to memory care Assessment/Plan Assessment/Plan Plan Nursing: declining medications took medications, then started coughing, then spit them in kleenex bitter, but not combative, patient: sitting in bed coloring, at first declines evaluation saying she has already talked to someone today reports being tired from medications, not hungry, I am getting ready to leave, don't want medications changed Vital Signs Date Time Temp Pulse Resp B/P (MAP) Pulse Ox O2 Delivery O2 Flow Rate FiO2 07/04/20 09:44 74 158/64 07/04/20 08:19 97.9 16 94 Room Air Allergies Coded Allergies Type Severity Reaction Last Updated Verified Penicillins Allergy Unknown unknown 06/30/20 Yes Sulfa (Sulfonamide Antibiotics) Allergy Unknown 06/30/20 Yes celecoxib Allergy Unknown 06/30/20 Yes Current Medications Medications (Trade) Dose Ordered Sig/Danish PRN Reason Start Time Stop Time Status Last Admin Acetaminophen (Tylenol) 1,000 mg Q6HR PRN PAIN/FEVER 07/02/20 00:30 08/01/20 00:29 Atorvastatin Calcium (Lipitor) 10 mg HS 07/01/20 21:00 07/31/20 20:59 07/01/20 20:38 Cholecalciferol (Vitamin D) 1,000 unit DAILY 07/02/20 09:18 08/01/20 09:17 07/03/20 09:22 Cholecalciferol (Vitamin D) 5,000 unit DAILY 07/02/20 09:39 08/01/20 09:38 07/03/20 09:22 Divalproex Sodium (Depakote Er) 250 mg 0900,1300 07/01/20 13:30 07/31/20 13:29 07/03/20 09:22 Divalproex Sodium (Depakote Er) 500 mg HS 07/01/20 21:00 07/31/20 20:59 07/01/20 20:37 Hydralazine HCl (Apresoline) 25 mg TID 07/02/20 09:00 08/01/20 08:59 07/03/20 09:23 Latanoprost (Xalatan) 1 drops HS 07/01/20 21:00 07/31/20 20:59 Melatonin (Melatonin) 9 mg HS 07/01/20 21:00 07/31/20 20:59 07/01/20 20:36 Nitroglycerin (Nitrostat) 0.4 mg PRN PRN CHEST PAIN 07/02/20 03:30 08/01/20 03:29 Pantoprazole Sodium (Protonix) 40 mg DAILY 07/02/20 09:00 08/01/20 08:59 07/03/20 09:23 psychotropics: namenda aricept depakote melatonin gabapentin summary: due to non-compliance of medications, she won't discuss the why and simply believes she has been taking her medications,likely more harm, causing mood instability by no doses for days then suddenly getting higher dose of her medications, not oriented - she looks at televideo and says I already talked to her she becomes upset about adjusting time of medications, says she has been taking her meds, then declines to take now, most of the time declining her medications, aggressive behavior has been an issue with her having as stable place to live, CONSENT: Consent was obtained by patient for telemedicine visit. Consent was obtained for the presence of staff member throughout encounter. Privacy was maintained throughout encounter PLAN: 1. CONTINUE BEHAVIORAL HEALTH MANAGEMENT. 2. CONTINUE CURRENT MEDICATIONS PRESCRIBED. STAFF AGREEABLE WITH PLAN 3. ALL PATIENT QUESTIONS ANSWERED RELATED TO MEDICATIONS, PLAN OF CARE, AND EXPECTED OUTCOMES. 4. SAFETY PLAN DISCUSSED. 5. changing depakote to liquid - BID 6. vitamin d- she has declined, stop for now 7. stop aricept and namenda, she has not been taking these medications, 8. stop offering melatonin, she sleeps without it, 9. stop offering gabapentin at TARAS VIRAMONTES NP Jul 04, 2020 11:05
--- NOTE | 2020-07-04 12:51 | NUR ---
TELEMED PT WAS SEEN BY Yuki VIRAMONTES NP. RECEIVED ORDERS TO START DEPAKOTE BID AND TO DISCONTINUE ARICEPT, NAMENDA, VIT D, AND GABAPENTIN D/T NON-COMPLIANCE WITH MEDICATIONS, SEE EMR.
[2020-07-04] MEDS: DEPAKENE PO SCH ×2 (14:07→20:20)
--- NOTE | 2020-07-04 17:38 | NUR ---
PIRP P: ALTERATION IN MOOD, NONCOMPLIANCE WITH MEDICATIONS, FALL RISK I: ASSESS FOR ANGER/IRRITABILITY, Q15 MIN MONITORING, PROVIDE 1:1 TO ENCOURAGE EXPRESSION OF FEELINGS, GIVE CLEAR AND SIMPLE INSTRUCTIONS, PROVIDE TASK-ORIENTED ACTIVITIES, ALTERNATE REST/ACTIVITY, PROVIDE MEDICATION EDUCATION NEEDED, GIVE MEDICATIONS ORDERED, REINFORCE FALL PREVENTION TECHNIQUES, PROVIDE POSITIVE FEEDBACK ON APPROPRIATE BEHAVIORS R: PT HAS FLAT AFFECT MAJORITY OF SHIFT, IS PLEASANT WITH APPROACH. HAS EXHIBITED ISOLATED EPISODES OF IRRITABILITY WHEN PERTAINING TO MEDICATION ADMINISTRATION/EDUCATION, HAS REFUSED MEDS THIS SHIFT. PT REMAINS ALERT AND ORIENTED TO SELF, HAS BEEN EXIT SEEKING THROUGHOUT SHIFT, BUT IS ABLE TO BE REDIRECTED WITH VERBALIZATION. HAS NOT EXHIBITED THREATENING OR COMBATIVE BEHAVIORS. ATTENDS GROUP ACTIVITIES, BUT DOES NOT ACTIVELY PARTICIPATE. INITIATES INTERACTION WITH PEERS, AMBULATES HENRY FREQUENTLY, AND IS ABLE TO TOILET SELF. P: RE-ORIENT TO SURROUNDINGS, USE CALM APPROACH, PROVIDE MEDICATION EDUCATION
[2020-07-04 20:00] VITALS: BP 167/70
[2020-07-04] MEDS: XALATAN BOTH EYES SCH (20:20)
[2020-07-04] MEDS: LIPITOR PO SCH (21:00)
--- NOTE | 2020-07-05 06:32 | NUR ---
P.I.R.P. P. ALTERATION IN THOUGHT PROCESS I. PROVIDE EVERY 15 MINUTE CHECKS, PROVIDE SAFE ENVIRONMENT, PROVIDE TASK ORIENTED ACTIVITIES AND ENCOURAGE PARTICIPATION. RE ORIENT AND RE DIRECT NEEDED. PROVIDE 1;1 INTERVENTION TO ALLOW PATIENT TO EXPRESS FEELINGS, EDUCATION REFERENCE MEDICATIONS , PROVIDE MEDICATIONS ORDERED PER MD. Aleksandr. PATIENT DECLINED ALL HS MEDS BUT DID TAKE NEW LIQUID DEPAKOTE IN JUICE. PATIENT DID ATTEND GROUP ACTIVITY AND INTERACTED APPROPRIATELY. PATIENT IS CONFUSED. WANDERS AT TIMES. P. CONTINUE CURRENT PLAN OF CARE.
[2020-07-05] MEDS: FLONASE NS SCH (08:59)
[2020-07-05] MEDS: PROTONIX PO SCH (09:02)
[2020-07-05] MEDS: NORVASC PO SCH (09:02)
[2020-07-05] MEDS: THERA PO SCH (09:02)
[2020-07-05] MEDS: COLACE PO SCH ×2 (09:02→20:05)
[2020-07-05] MEDS: DEPAKENE PO SCH ×2 (09:02→20:04)
[2020-07-05] MEDS: ASPIRIN PO SCH (09:02)
[2020-07-05] MEDS: LOPRESSER PO SCH ×2 (09:02→20:06)
[2020-07-05] MEDS: APRESOLINE PO SCH ×4 (09:03→20:06)
[2020-07-05 10:09] VITALS: BP 197/90
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
[2020-07-05] MEDS: ZYPREXA ZYDIS SL SCH ×2 (11:54→20:05)
--- NOTE | 2020-07-05 11:55 | NUR ---
NEW ORDER NEW ORDER FOR ZYPREXA 2.5 MG PO BID. FIRST DOSE TO START NOW. MEDICATION TAKEN TO PT AND PT ASKED WHAT IT WAS. EXPLAINED THAT THE DR ORDERED IT FOR HER TO HELP HER WITH HER MOOD AND THOUGHTS. SHE STATED THAT NOTHING WRONG WITH HER. LEFT PT FOR A COUPLE OF MINUTES AND TRIED AGAIN. WHEN PT ASKED EXPLAINED THAT IT WAS A VITAMIN THE DR ORDER FOR HER. PT TOOK IT WITHOUT ANY DIFFICULTY.
--- NOTE | 2020-07-05 17:32 | NUR ---
PIRP: P: ALTERATION THOUGHT PROCESS I: PROVIDE MEDICATIONS ORDERED BY PHYSICIAN. ENCOURAGE ATTENDANCE AND PARTICIPATION OF ALL GROUPS. PROVIDE SAFE ENVIRONMENT. MONITOR PATIENT FOR PSYCHOTIC SYMPTOMS R: PATIENT HAS BEEN AGITATED SINCE WAKING UP THIS MORNING. SHE HAS MADE NEGATIVE COMMENTS AND CALLED STAFF NAMES.SHE HAS NOT PARTICIPATED IN GROUPS. SHE WAS STARTED ON ZYPREXA 2.5 MG PO BID. PATIENT DENIES DEPRESSION, ANXIETY AND SUICIDAL IDEATION. P: CONTINUE CURRENT PLAN OF CARE.
[2020-07-05 19:47] VITALS: BP 142/67
[2020-07-05] MEDS: LIPITOR PO SCH (20:06)
--- NOTE | 2020-07-05 20:50 | NUR ---
HOSPITALIST DR MELO /HOSPITALIST IN TO SEE PATIENT, MEDS AND LABS REVIEWED, PATIENT REFUSED TO SEE THE DOCTOR OR ALLOW HIM TO ASSESS HER. NO CHANGES OR NEW ORDERS AT THIS TIME.
[2020-07-05] MEDS: XALATAN BOTH EYES SCH (21:00)
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
--- NOTE | 2020-07-06 06:10 | NUR ---
P.I.R.P. P. ALTERATION IN THOUGHT PROCESS./MED COMPLIANCE I. PROVIDE EVERY 15 MINUTE CHECKS, PROVIDE SAFE ENVIRONMENT, PROVIDE MEDICATIONS ORDERED PER MD, PROVIDE 1:1 INTERVENTION TO ALLOW PATIENT TO EXPRESS FEELINGS. MONITOR FOR CHANGES IN COGNITIVE STATUS. PROVIDE MEDICATION EDUCATION R. PATIENT COMPLIANT WITH MEDS, PATIENT WAS ANXIOUS APPEARING ALTHOUGH DENIES ANXIETY, WAS PLEASANT, PATIENT WANDERED IN AND OUT OF HER ROOM AT TIMES ESPECIALLY AT HS. VOICED HER MIND JUST KEEPS RUNNING WHEN TRYING TO SLEEP, DENIES NEED FOR MEDICATION AT THIS TIME. DENIED DEPRESSION, DENIES SUICIDAL IDEATIONS. PATIENT VOICES THINGS HAVE CHANGED SINCE SHE MOVED HERE A FEW WEEKS AGO, PATIENT IS CONFUSED AND FORGETFUL. P. CONTINUE CURRENT PLAN OF CARE.
[2020-07-06] MEDS: FLONASE NS SCH (09:00)
[2020-07-06 09:05] VITALS: BP 149/64
[2020-07-06] MEDS: APRESOLINE PO SCH ×3 (09:12→20:21)
[2020-07-06] MEDS: THERA PO SCH (09:13)
[2020-07-06] MEDS: ZYPREXA ZYDIS SL SCH ×2 (09:13→20:23)
[2020-07-06] MEDS: LOPRESSER PO SCH ×2 (09:13→20:21)
[2020-07-06] MEDS: ASPIRIN PO SCH (09:13)
[2020-07-06] MEDS: NORVASC PO SCH (09:13)
[2020-07-06] MEDS: PROTONIX PO SCH (09:13)
[2020-07-06] MEDS: DEPAKENE PO SCH ×2 (09:13→20:20)
[2020-07-06] MEDS: COLACE PO SCH ×2 (09:14→20:21)
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
--- NOTE | 2020-07-06 15:45 | NUR ---
Behavior Patient refused 2nd attempt to have an IV placed for VQ scan after first attempt resulted in a blown Vein. D-dimer was 0.70 on 07/02. Patient unable to have a CTA of chest secondary to renal function. Refused to go down for procedure and allow for tech to get a peripheral IV. RN notified Dr. Gonzalez of the same. Notiifed patient's daughter Nathalia. Awaiting call from POA patient's son Mac.
--- NOTE | 2020-07-06 17:08 | NUR ---
PIRP P: ALTERATION IN MOOD; DTO I: PROVIDE SAFE AND SUPPORTIVE ENVIRONMENT; MONITOR FOR SAFETY EVERY 15 MINUTES; PROVIDE MEDICATIONS ORDERED, EXPLAIN NEED AND PURPOSE; PROVIDE 1:1 INTERVENTION ALLOWING PATIENT TO EXPRESS THOUGHTS AND FEELINGS; ENCOURAGE PATIENT TO SHOWER EVERY OTHER DAY; ENCOURAGE PARTICIPATION IN GROUP ACTIVITIES; EDUCATE PATIENT IN ALTERNATIVE COPING MECHANISMS; REORIENT AND REDIRECT NEEDED; ASSESS PATIENT FOR DEPRESSION, ANXIETY, SI/HI, VOICES/VISIONS; ALTERNATE REST AND ACTIVITY PERIODS; PROVIDE DAILY ACCESS TO PSYCHIATRIC PROFESSIONAL; R: ALL NON-PATIENT AREAS SECURE, EXITS LOCKED; Q 15 MINUTE LOGGED; DENIES DEPRESSION, ANXIETY, SI/HI, VOICES/VISIONS; PATIENT STAYED LATE IN BED DUE TO ONLY SLEEPING 2 HOURS THE PREVIOUS NIGHT, THEREFORE REFUSED MUSIC THERAPY TODAY, MIRTAZAPINE ORDER TO START TONIGHT AFTER ASSESSMENT VIA TELEMED BY PSYCH PROFESSIONAL ELVIRA VIRAMONTES CLOTHING WORKER; PATIENT BECAME UPSET WHEN THIS RN TRIED TO EXPLAIN THE NEED FOR A VQ SCAN, SHE REFUSED AND KNOCKED RNs GLASSES OFF; PATIENT ADMONISHED FOR HER INAPPROPRIATE BEHAVIOR, SHE THEN STUCK OUT HER TONGUE; PATIENT HAS SINCE COME TO RN IN A PLEASANT MANNER P: DISCHARGE PLANNING FOR ASSISTED LIVING; MONITOR MEDICATION FOR THERAPEUTIC EFFECT
[2020-07-06 19:52] VITALS: BP 125/68
[2020-07-06] MEDS: REMERON PO SCH (20:22)
[2020-07-06] MEDS: LIPITOR PO SCH (20:28)
[2020-07-06] MEDS: XALATAN BOTH EYES SCH (20:29)
--- NOTE | 2020-07-07 02:51 | PRM.PN ---
Subjective Subjective Date: Jul 06, 2020 Time: 20:30 Subjective PATIENT CONTINUES TO REFUSE TO SEE ME OR SPEAK WITH ME AGAIN TONIGHT VTE VTE Risk Total Score: 3 VTE Risk Score VTE Risk: Score 0-1 = Low Risk (Aggressive mobilization; early ambulation; no VTE prophylaxis required) Score 2: Moderate Risk (Intermittent/Pneumatic Compression Device OR Lovenox/Heparin/Coumadin) Score 3-4: High Risk (Intermittent/Pneumatic Compression Device AND Lovenox/Heparin/Coumadin) Score > or =5: Highest Risk (Intermittent/Pneumatic Compression Device AND Lovenox/Heparin/Coumadin) Antico:Hep/LMWH/Coum/Xarelto: No Review of Systems Allergies: Coded Allergies: Penicillins (Verified Allergy, Unknown, unknown, 06/30/20) Sulfa (Sulfonamide Antibiotics) (Verified Allergy, Unknown, 06/30/20) celecoxib (Verified Allergy, Unknown, 06/30/20) Scheduled Amlodipine Besylate (Amlodipine Besylate), 1 TAB PO DAILY, (Reported) Aspirin (Aspirin), 1 TAB PO DAILY, (Reported) Atorvastatin 10MG (Lipitor 10MG), 1 TAB PO HS, (Reported) Calcitonin,Troy,Synthetic (Calcitonin-Troy), 1 SPR NA QD, (Reported) Divalproex Sodium (Depakote Er), 2 TAB PO HS, (Reported) Docusate Sodium (Docusate Sodium), 1 CAP PO BID, (Reported) Donepezil Hcl (Donepezil Hcl), 1 TAB PO DAILY, (Reported) Fluticasone Propionate (Fluticasone Propionate), 2 SPR NA DAILY, (Reported) Furosemide (Furosemide), 20 MG PO 3x weekly, (Reported) Gabapentin (Neurontin), 1 CAP PO HS, (Reported) Levothyroxine Sodium (Levothyroxine Sodium), 1 TAB PO DAILY, (Reported) Melatonin (Melatonin), 1 TAB PO HS, (Reported) Memantine Hcl (Namenda), 1 TAB PO BID, (Reported) Metoprolol Tartrate 25MG (Lopresser 25MG), 1 TAB PO BID, (Reported) Multivitamin (Multi Vitamin Daily), 1 TAB PO QD, (Reported) Simvastatin (Simvastatin), 1 TAB PO HS, (Reported) Venlafaxine Hcl (Venlafaxine Hcl), 75 MG PO HS, (Reported) Venlafaxine Hcl (Effexor Xr), 75 MG PO DAILY24, (Reported) [lananoprost .005% ], 1 DROP BOTH EYES HS, (Reported) Discontinued Medications Divalproex Sodium (Depakote Er), 2,000 MG PO DAILY24, (Reported) Discontinued Reason: No Longer Taking Donepezil Hcl (Donepezil Hcl), 1 TAB PO DAILY, (Reported) Discontinued Reason: Discontinue Memantine Hcl (Namenda), 21 TAB PO DAILY24, (Reported) Discontinued Reason: Discontinue Objective Vitals and I/O Vital Sign - Last 24 Hours 07/06/20 07/06/20 07/06/20 07/06/20 09:05 09:12 09:13 09:13 Temp 98.6 Pulse 69 69 69 69 Resp 16 B/P (MAP) 149/64 (92) 149/64 149/64 149/64 Pulse Ox 94 O2 Delivery Room Air 07/06/20 07/06/20 07/06/20 07/06/20 14:55 19:52 20:21 20:21 Temp 98.4 Pulse 69 67 67 67 Resp 16 B/P (MAP) 149/64 125/68 (87) 125/68 125/68 Pulse Ox 99 O2 Delivery Room Air Intake and Output 07/07/20 07:00 Intake Total 1006 ml Balance 1006 ml Psych/Mental Status: Other (see MSE above) All Results(Lab/Rad) Current Medications Medications (Trade) Dose Ordered Sig/Danish Route PRN Reason Start Time Stop Time Status Last Admin Dose Admin Divalproex Sodium (Depakote Er) 1,000 mg HS PO 06/30/20 21:00 07/01/20 13:27 DC Gabapentin (Neurontin) 300 mg HS PO 06/30/20 21:00 07/04/20 13:08 DC 07/01/20 20:36 Miscellaneous Medication (Namenda) 10 mg BID PO 06/30/20 21:00 07/04/20 13:08 DC 07/03/20 09:22 Venlafaxine HCl (Effexor) 75 mg HS PO 06/30/20 21:00 06/30/20 21:17 DC Donepezil HCl (Aricept Odt) 10 mg DAILY PO 07/01/20 09:00 07/04/20 13:08 DC 07/03/20 09:22 Melatonin (Melatonin) 9 mg HS PRN PO INSOMNIA 06/30/20 21:00 07/02/20 02:24 DC Venlafaxine HCl (Effexor Xr) 75 mg HS PO 06/30/20 21:17 07/01/20 01:44 DC Amlodipine Besylate (Norvasc) 10 mg DAILY PO 07/01/20 09:00 07/31/20 08:59 07/05/20 09:02 Aspirin (Aspirin) 81 mg DAILY PO 07/01/20 09:00 07/31/20 08:59 07/05/20 09:02 Atorvastatin Calcium (Lipitor) 10 mg HS PO 07/01/20 21:00 07/31/20 20:59 07/05/20 20:06 Docusate Sodium (Colace) 100 mg BID PO 07/01/20 09:00 07/31/20 08:59 07/05/20 20:05 Fluticasone Propionate (Flonase) 1 sprays DAILY NS 07/01/20 09:00 07/31/20 08:59 Furosemide (Lasix) 20 mg TIW PO 07/01/20 01:30 07/01/20 01:47 DC Metoprolol Tartrate (Lopresser) 25 mg BID PO 07/01/20 09:00 07/31/20 08:59 07/05/20 20:06 Venlafaxine HCl (Effexor Xr) 75 mg DAILY24 PO 07/01/20 01:30 07/01/20 01:47 DC Melatonin (Melatonin) 9 mg HS PO 07/01/20 21:00 07/04/20 13:08 DC 07/01/20 20:36 Latanoprost (Xalatan) 1 drops HS BOTH EYES 07/01/20 21:00 07/31/20 20:59 Divalproex Sodium (Depakote Er) 500 mg HS PO 07/01/20 21:00 07/04/20 13:08 DC 07/01/20 20:37 Divalproex Sodium (Depakote Er) 250 mg 0900,1300 PO 07/01/20 13:30 07/04/20 13:08 DC 07/03/20 09:22 Pantoprazole Sodium (Protonix) 40 mg DAILY PO 07/02/20 09:00 08/01/20 08:59 07/05/20 09:02 Pantoprazole Sodium (Protonix) 40 mg OT ONCE PO 07/02/20 00:30 07/02/20 00:48 DC 07/02/20 00:24 Acetaminophen (Tylenol) 1,000 mg Q6HR PRN PO PAIN/FEVER 07/02/20 00:30 08/01/20 00:29 Hydralazine HCl (Apresoline) 25 mg TID PO 07/02/20 09:00 08/01/20 08:59 07/05/20 20:06 Cholecalciferol (Vitamin D) 6,000 unit DAILY PO 07/02/20 09:00 07/02/20 09:18 DC Nitroglycerin (Nitrostat) 0.4 mg PRN PRN SL CHEST PAIN 07/02/20 03:30 08/01/20 03:29 Cholecalciferol (Vitamin D) 5,000 unit DAILY PO 07/02/20 09:18 07/02/20 09:39 DC Cholecalciferol (Vitamin D) 1,000 unit DAILY PO 07/02/20 09:18 07/04/20 13:08 DC 07/03/20 09:22 Cholecalciferol (Vitamin D) 5,000 unit DAILY PO 07/02/20 09:39 07/04/20 13:08 DC 07/03/20 09:22 Olanzapine (Zyprexa Zydis) 2.5 mg BID SL 07/05/20 12:00 08/04/20 11:59 07/05/20 20:05 Course Duration or Total Time Spent w: 45 min Vitals & review Data Vital Sign - Last 24 Hours 07/05/20 07/05/20 07/05/20 07/05/20 09:02 09:02 09:03 10:09 Temp 97.9 Pulse 65 65 65 74 Resp 18 B/P (MAP) 167/70 167/70 167/70 197/90 (125) Pulse Ox 96 O2 Delivery Room Air 07/05/20 07/05/20 07/05/20 19:47 20:06 20:06 Temp 97.4 Pulse 63 65 63 Resp 18 B/P (MAP) 142/67 (92) 142/67 142/67 Pulse Ox 99 O2 Delivery Room Air Intake and Output 07/05/20 07:00 Intake Total 1652 ml Balance 1652 ml Current Medications Medications (Trade) Dose Ordered Sig/Danish PRN Reason Start Time Stop Time Status Last Admin Olanzapine (Zyprexa Zydis) 2.5 mg BID 07/05/20 12:00 08/04/20 11:59 07/05/20 20:05 O2 Sat by Pulse Oximetry: 99 Assessment/Plan Assessment/Plan Assessment/Plan Nursing: reports she refused to take her medications again today Sleep remains poor Her PO fluid intake remains poor and needs to be increased given her significant prerenal failure picture manual bp 140/71 Vital Signs Date Time Temp Pulse Resp B/P (MAP) Pulse Ox O2 Delivery O2 Flow Rate FiO2 07/06/20 09:13 69 149/64 07/06/20 09:05 98.6 16 94 Room Air Allergies Coded Allergies Type Severity Reaction Last Updated Verified Penicillins Allergy Unknown unknown 06/30/20 Yes Sulfa (Sulfonamide Antibiotics) Allergy Unknown 06/30/20 Yes celecoxib Allergy Unknown 06/30/20 Yes Current Medications Medications (Trade) Dose Ordered Sig/Danish PRN Reason Start Time Stop Time Status Last Admin Olanzapine (Zyprexa Zydis) 2.5 mg BID 07/05/20 12:00 08/04/20 11:59 07/06/20 09:13 psychotropics: valproic liquid 250mg bid, stopped medications that were likely causing more of issue to mood/renal system when not taking it for days then randomly taking a dose: namenda aricept melatonin gabapentin summary: today positive about seeing me on screen but indicates she did want to talk to anybody else CONSENT: Consent was obtained by patient for telemedicine visit. Consent was obtained for the presence of staff member throughout encounter. Privacy was maintained throughout encounter PLAN: 1. CONTINUE BEHAVIORAL HEALTH MANAGEMENT. 2. CONTINUE CURRENT MEDICATIONS PRESCRIBED. STAFF AGREEABLE WITH PLAN 3. ALL PATIENT QUESTIONS ANSWERED RELATED TO MEDICATIONS, PLAN OF CARE, AND EXPECTED OUTCOMES. 4. SAFETY PLAN DISCUSSED. 5. remeron 7.5mg at hs, preferring orally disintegrating Plan Nursing: she took her medications this morning, she only slept 2 hours last night, negative appearing/frown face much of day manual bp 140/71 appetite can be lower, positive D dimer, I v for contrast- CT Angiogram of the chest patient: she says she does not want to talk today, but looks at the screen and says "but I like her" she will wave at me, Vital Signs Date Time Temp Pulse Resp B/P (MAP) Pulse Ox O2 Delivery O2 Flow Rate FiO2 07/06/20 09:13 69 149/64 07/06/20 09:05 98.6 16 94 Room Air Allergies Coded Allergies Type Severity Reaction Last Updated Verified Penicillins Allergy Unknown unknown 06/30/20 Yes Sulfa (Sulfonamide Antibiotics) Allergy Unknown 06/30/20 Yes celecoxib Allergy Unknown 06/30/20 Yes Current Medications Medications (Trade) Dose Ordered Sig/Danish PRN Reason Start Time Stop Time Status Last Admin Olanzapine (Zyprexa Zydis) 2.5 mg BID 07/05/20 12:00 08/04/20 11:59 07/06/20 09:13 psychotropics: valproic liquid 250mg bid, stopped medications that were likely causing more of issue to mood/renal system when not taking it for days then randomly taking a dose: namenda aricept melatonin gabapentin summary: today positive about seeing me on screen but indicates she did want to talk to anybody else CONSENT: Consent was obtained by patient for telemedicine visit. Consent was obtained for the presence of staff member throughout encounter. Privacy was maintained throughout encounter PLAN: 1. CONTINUE BEHAVIORAL HEALTH MANAGEMENT. 2. CONTINUE CURRENT MEDICATIONS PRESCRIBED. STAFF AGREEABLE WITH PLAN 3. ALL PATIENT QUESTIONS ANSWERED RELATED TO MEDICATIONS, PLAN OF CARE, AND EXPECTED OUTCOMES. 4. SAFETY PLAN DISCUSSED. 5. remeron 7.5mg at hs, preferring orally disintegrating ABHIJIT MELO MD Jul 07, 2020 02:51
--- NOTE | 2020-07-07 06:01 | NUR ---
PIRP- P- ALTERATION IN MOOD I- PROVIDE MEDICATION ORDERED,PROVIDE SAFE AND SUPPORTIVE ENVIRONMENT, REDIRECT NEEDED AND Q 15 MIN. MONITORING R-PT. RATED DEPRESSION AND ANXIETY 0. REFUSED TO ATTEND GROUP TELLING STAFF TO GET OU OF HER ROOM. THEN SHE CAME TO GROUP WHEN IT STARTED. PT. CALLED MEDICATION NURSE A QUEER WHEN HE CAME TO GIVE PT. HER MEDICATION BUT SHE DID TAKE HER MEDICATION WITH NO PROMPTING REQUIRED. SHE GRABBED THE MEDICATION FROM NURSE'S HAND AND TOOK IT. REMERON WAS STARTED TONIGHT. PT. ATTEMPTED TO GATHER PEER'S CRAFTS WHILE IN DAY ROOM. SHE HAS GATHER HER CLOTHES AND PUT THEM IN BED WITH HER AND REFUSED REDIRECTING. DR. MELO CAME TO SEE PT. BUT SHE REFUSED TO SEE HIM OR TALK TO HIM. PT. HAS RESTED IN BED WITH EYES CLOSED 8.50 HOURS TONIGHT.
[2020-07-07] MEDS: FLONASE NS SCH ×3 (09:45→15:45)
[2020-07-07] MEDS: APRESOLINE PO SCH ×3 (09:49→20:45)
[2020-07-07] MEDS: PROTONIX PO SCH (09:49)
[2020-07-07] MEDS: LOPRESSER PO SCH ×2 (09:49→20:45)
[2020-07-07] MEDS: DEPAKENE PO SCH ×2 (09:49→20:45)
[2020-07-07] MEDS: THERA PO SCH (09:49)
[2020-07-07] MEDS: ZYPREXA ZYDIS SL SCH ×2 (09:49→20:45)
[2020-07-07] MEDS: ASPIRIN PO SCH (09:50)
[2020-07-07] MEDS: NORVASC PO SCH (09:50)
[2020-07-07] MEDS: COLACE PO SCH ×2 (09:50→20:45)
[2020-07-07 11:18] VITALS: BP 145/91
--- NOTE | 2020-07-07 13:45 | NUR ---
TELEMEDICINE PT WAS SEEN BY Yuki VIRAMONTES NP VIA TELEMEDICINE. NO NEW ORDERS.
--- NOTE | 2020-07-07 13:45 | PRM.PN ---
Mood: mixed irritable, less aggressive verbally Sleep: 8. 5 hours , she slept in Appetite: can be picky eater, Suidical thoughts: does not make statements Homicidal thoughts: does not make statements Recent stressors: where is everyone that was here before, possibly prevous snf Family support: son and grand daughter Aggressive Behavior: not physical, verbal, mild Ability to Perform ADL'sc: staff direction Psychotic sympstoms: paranoid, others stealing from her Manic Symptoms: mixed irritable, labile mood changes Living situation: between placements Illicit Drug usec: na Alcoholo use: na Tobacco use: na Family,PT,Surgical,&Current HX: (1) Delusional disorder (2) Dementia Anxity Symptoms: denies today Anger/Irritablility: easily annoyed with questions Muscle Strength & Tone: Rigidity Gait & Station: Ataxic (uses walker ) Appearance: Well groomed/hygience (she can take herself to BR, ) Attitude & Behaviour: Cooperative/Pleasant (indicates she wants to take a nap but thanks me for understanding) Judgement/Insight: Fair judgement, Fair insight Thought Process: Circumferential Language: Emirati Thought content/Abnormal/Psych: Delusions (perceptions not accurate, paranoid of others stealing her clothes) Fund of Knowledge: WN Associations: Other Constitutional: None Neurological: None Psychiatric: Psychosis Cascade I: delusional disorder, dementia Cascade IV: between placements Assessment/Plan Assessment/Plan Plan Nursing: she took medications this morning mood rapid cycling, can be short, moments of being pleasant, goes back to being pleasant, verbally aggressive- less, threatened harm- not today Vital Signs Date Time Temp Pulse Resp B/P (MAP) Pulse Ox O2 Delivery O2 Flow Rate FiO2 07/07/20 11:18 98.7 77 18 145/91 (109) 94 Room Air Allergies Coded Allergies Type Severity Reaction Last Updated Verified Penicillins Allergy Unknown unknown 06/30/20 Yes Sulfa (Sulfonamide Antibiotics) Allergy Unknown 06/30/20 Yes celecoxib Allergy Unknown 06/30/20 Yes Current Medications Medications (Trade) Dose Ordered Sig/Danish PRN Reason Start Time Stop Time Status Last Admin Mirtazapine (Remeron) 7.5 mg HS 07/06/20 21:00 08/05/20 20:59 07/06/20 20:22 Olanzapine (Zyprexa Zydis) 2.5 mg BID 07/05/20 12:00 08/04/20 11:59 07/07/20 09:49 psychotropics: valproic liquid 250mg bid, remeron 7.5mg daily at hs olanzapine 2.5mg po bid stopped medications that were likely causing more of issue to mood/renal system when not taking it for days then randomly taking a dose: namenda aricept melatonin gabapentin summary: does not stay oriented, mood labile, but having some pleasant moments and more likely to cooperate than previous, has been saying thank you today CONSENT: Consent was obtained by patient for telemedicine visit. Consent was obtained for the presence of staff member throughout encounter. Privacy was master ntained throughout encounter PLAN: 1. CONTINUE BEHAVIORAL HEALTH MANAGEMENT. 2. CONTINUE CURRENT MEDICATIONS PRESCRIBED. STAFF AGREEABLE WITH PLAN 3. ALL PATIENT QUESTIONS ANSWERED RELATED TO MEDICATIONS, PLAN OF CARE, AND EXPECTED OUTCOMES. 4. SAFETY PLAN DISCUSSED. TARAS VIRAMONTES NP Jul 07, 2020 13:45
--- NOTE | 2020-07-07 15:46 | NUR ---
FLONASE FLONASE WAS GIVEN WHEN FOUND
--- NOTE | 2020-07-07 17:35 | NUR ---
PIRP P: ALTERATION IN MOOD I: MONITOR Q 15 MINUTES PER UNIT POLICY; PROVIDE A SAFE SUPPORTIVE ENVIRONMENT; MONITOR AND RECORD MEALS; ASSESS FOR DEPRESSION, ANXIETY, SI/HI/ VOICES AND VISIONS; ACCESS TO A PSYCHIATRIC PROFESSIONAL 6 DAYS A WEEK; ENCOURAGE SHOWERS EVERY OTHER DAY, HELP NEEDED; PROVIDE APPROPRIATE COGNITIVE ACTIVITIES; REORIENT AND REDIRECT NEEDED; PROVIDE MEDICATIONS ORDERED WITH EXPLANATION OF NEED AND PURPOSE R: PATIENT TOOK ALL OF HER MEDICATIONS; HAS NOT BEEN NOTED TO BE ANXIOUS OR DEPRESSED; NOTED TO HAVE COMPULSIVE HOARDING BEHAVIOR EVIDENCED BY HER COLLECTING AND HIDING ITEMS,[CLOTHING/TOILETRIES] IN HER SHOWER AND IN HER BED OR UNDER HER BED; UNABLE TO SIT FOR VERY LONG TO ATTEND GROUP, 1:1 FOR A SHORT TIME WITH THIS RN, GETS FRUSTRATED BECAUSE SHE DOES NOT UNDERSTAND THE CONCEPT OF SIMPLE TASKS SUCH PLACING PICTURES ON A STORY BOARD; REFUSES TO SHOWER; UP TO WANDER THE HENRY AND HAS TRIED TO OPEN EXIT DOORS, WHICH ARE SECURES; ALL NON-PATIENT AREAS SECURE; POOR APPETITE, LESS THAN 50% AT MEALS P: FAMILY INDICATED THEY WOULD LIKE AN ASSISTED LIVING FACILITY
[2020-07-07 20:09] VITALS: BP 126/73
[2020-07-07] MEDS: LIPITOR PO SCH (20:45)
[2020-07-07] MEDS: REMERON PO SCH (20:45)
[2020-07-07] MEDS: XALATAN BOTH EYES SCH (20:54)
--- NOTE | 2020-07-08 02:27 | NUR ---
PIRP- P- ALTERATION IN MOOD I- PROVIDE SAFE AND SUPPORTIVE ENVIRONMENT,PROVIDE MEDICATION ORDERED AND Q 15 MIN. MONITORING. R- PT. STATED SHE WAS DEPRESSED BUT WAS UNABLE TO RATE IT . SHE DENIED ANXIETY. ATTENDED GROUP,ATE SNACKS AND PARTICIPATED IN GROUP ACTIVITY. TOOK MEDICATION WITH PROMPTING AND MEDICATION EDUCATION. PT. CONTINUES TO HIDE HER CLOTHES IN HER BED AND HER WALKER SEAT. WANDERED IN HALLWAY AT TIMES. EXIT SEEKING AT TIMES. RESTING IN BED WITH EYES CLOSED AT THIS TIME. P- WILL CONTINUE TO PROVIDE SAFE AND SUPPORTIVE ENVIRONMENT, REDIRECT NEEDED AND PROVIDE 1:1 INTERVENTION ALLOWING PT. TO EXPRESS THOUGHTS AND FEELINGS.
[2020-07-08 08:20] VITALS: BP 180/68
[2020-07-08] MEDS: NORVASC PO SCH (08:46)
[2020-07-08] MEDS: DEPAKENE PO SCH ×2 (08:46→20:16)
[2020-07-08] MEDS: ASPIRIN PO SCH (08:46)
[2020-07-08] MEDS: COLACE PO SCH ×2 (08:46→20:37)
[2020-07-08] MEDS: LOPRESSER PO SCH ×2 (08:46→20:39)
[2020-07-08] MEDS: THERA PO SCH (08:47)
[2020-07-08] MEDS: PROTONIX PO SCH (08:47)
[2020-07-08] MEDS: ZYPREXA ZYDIS SL SCH ×2 (08:47→20:40)
[2020-07-08] MEDS: APRESOLINE PO SCH ×3 (08:47→20:37)
[2020-07-08] MEDS: FLONASE NS SCH (08:57)
--- NOTE | 2020-07-08 09:28 | PRM.PN ---
Mood: often has frown on face, Sleep: 6.75 hours Appetite: good, can be picky Suidical thoughts: does not make statemetns Homicidal thoughts: does not make statements Recent stressors: denies Family support: son, working on placement Aggressive Behavior: not physically aggressive, non threatening Ability to Perform ADL'sc: staff standby, some direction Psychotic sympstoms: hides clothes, scavengers, accuses stealing Manic Symptoms: can relax some, Living situation: between placements, Illicit Drug usec: na Alcoholo use: na Tobacco use: na Family,PT,Surgical,&Current HX: (1) Delusional disorder (2) Dementia Anxity Symptoms: denies Anger/Irritablility: can make short comments Muscle Strength & Tone: WNL Gait & Station: WNL Appearance: Well groomed/hygience Attitude & Behaviour: Cooperative/Pleasant Mood & Affect: Euthymic/appr/congruent Orientation: Disoriented to place, Disoriented to time, Disoriented to situation Attention/Concentration: Fair attention, Fair concentration Speech: Reg rate/vol/rhyth/prosod Judgement/Insight: Fair judgement, Poor insight Thought Process: Circumferential Language: Upper Sorbian Thought content/Abnormal/Psych: Delusions Fund of Knowledge: WNL Associations: Other Constitutional: None Neurological: None Psychiatric: Depressed (can be short, irritable, ), Psychosis (perceptions do not stay oriented) Perry I: delusional disorder, dementia [place] IV: between placements Assessment/Plan Assessment/Plan Plan Nursing: she has been ok, she did take her morning medications bp elevated, nursing was able to discuss with her health risk of elevated bp will appear with negative look on face she continues to collect items form unit, stores in walker, hides her clothese, fear of stealing Vital Signs Date Time Temp Pulse Resp B/P (MAP) Pulse Ox O2 Delivery O2 Flow Rate FiO2 07/08/20 08:47 86 180/68 07/08/20 08:20 97.2 18 99 Room Air Allergies Coded Allergies Type Severity Reaction Last Updated Verified Penicillins Allergy Unknown unknown 06/30/20 Yes Sulfa (Sulfonamide Antibiotics) Allergy Unknown 06/30/20 Yes celecoxib Allergy Unknown 06/30/20 Yes Current Medications Medications (Trade) Dose Ordered Sig/Danish PRN Reason Start Time Stop Time Status Last Admin Mirtazapine (Remeron) 7.5 mg HS 07/06/20 21:00 08/05/20 20:59 07/07/20 20:45 Olanzapine (Zyprexa Zydis) 2.5 mg BID 07/05/20 12:00 08/04/20 11:59 07/08/20 08:47 psychotropics: valproic liquid 250mg bid, remeron 7.5mg daily at hs olanzapine 2.5mg po bid stopped medications that were likely causing more of issue to mood/renal system when not taking it for days then randomly taking a dose: namenda aricept melatonin gabapentin summary: today she was able to handle a few more evaluation questions than before but denies she has blood pressure issues, she will still make it known when she does not hear the question, CONSENT: Consent was obtained by patient for telemedicine visit. Consent was obtained for the presence of staff member throughout encounter. Privacy was maintained throughout encounter PLAN: 1. CONTINUE BEHAVIORAL HEALTH MANAGEMENT. possible discharge end of this week 2. CONTINUE CURRENT MEDICATIONS PRESCRIBED. STAFF AGREEABLE WITH PLAN 3. ALL PATIENT QUESTIONS ANSWERED RELATED TO MEDICATIONS, PLAN OF CARE, AND EXPECTED OUTCOMES. 4. SAFETY PLAN DISCUSSED. 5. valproic level, lipids, cbc and cmp prior to discharge to rule out changes secondary to medications 6. greatly appreciate hospitalist assist related to elevated bp TARAS VIRAMONTES NP Jul 08, 2020 09:28
--- NOTE | 2020-07-08 09:29 | NUR ---
TELEMED PT WAS SEEN BY Yuki VIRAMONTES NP. RECEIVED ORDERS FOR DEPAKOTE LEVEL IN A.M., SEE EMR.
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
[2020-07-08 11:37] LABS: BASOPHIL % 0.5 % (0.0-0.2); EOSINOPHIL # 0.2 10^3/uL (0.0-0.2); EOSINOPHIL % 4.9 % (0.0-5.0); LYMPHOCYTES # 1.56 10^3/uL1 (1.0-4.8); LYMPHOCYTES % 40.3 % (24.0-44.0); MEAN CORP HGB 31.3 pg (26-34); MONOCYTES # 0.3 10^3/uL (0.3-0.8); MONOCYTES % 8.8 % (5.0-12.0); NEUTROPHIL # 1.8 10^3/uL (1.8-7.7); NEUTROPHILS % 45.2 % (41.0-85.0); PLATELET COUNT 206 10^3/uL (150-400)
[2020-07-08 11:55] LABS: CARBON DIOXIDE 26.5 mmol/L (20.0-32)
--- NOTE | 2020-07-08 16:42 | NUR ---
DISCHARGE PLANNING: SW VISITED WITH PT'S SON AND DAUGHTER REGARDING DISCHARGE AND DECIDED TO GO WITH [facility] OR [facility]. SW REACHED OUT TO BOTH. [facility] STATED THEY WOULD NOT HAVE A BED AVAILABLE UNTIL 07/16/2020 BUT HAVE 3 OTHER PEOPLE LOOKING AT THAT ROOM. SW SET UP FACE TO FACE ASSESSMENT WITH [facility] ON 07/10/2020 AND LET [facility] KNOW [facility] WOULD BE THEIR FIRST CHOICE. SW TO CONTINUE TO FOLLOW.
--- NOTE | 2020-07-08 17:38 | NUR ---
PIRP P: ALTERATION IN MOOD, EXIT-SEEKING I: Q15 MIN MONITORING, REDIRECT WITH VERBALIZATION, GIVE CLEAR AND SIMPLE INSTRUCTIONS, RE-ORIENT TO SURROUNDINGS/REALITY NEEDED, PROVIDE MEDICATION EDUCATION, GIVE MEDICATIONS ORDERED, PROVIDE SYMPTOMATOLOGY EDUCATION REGARDING HTN, REINFORCE IMPORTANCE OF MEDICATION COMPLIANCE, ALTERNATE REST/ACTIVITY, PROVIDE SAFE AND SUPPORTIVE ENVIRONMENT R: PT HAS FLAT AFFECT MAJORITY OF SHIFT, HAS NOT EXHIBITED THREATENING OR COMBATIVE BEHAVIORS. PT HAS EPISODES OF IRRITABILITY AT TIMES, BUT HAS BEEN ABLE TO REDIRECT WITH VERBALIZATION. DOES NOT INITIATE INTERACTION WITH STAFF, BUT DOES INITIATE INTERACTION WITH PEERS AND RESPONDS APPROPRIATELY TO APPROACH BY PEERS. NO HALLUCINATIONS OR DELUSIONS NOTED, DENIES SUICIDAL/HOMICIDAL IDEATION. HAS REFUSED PHYSICAL ASSESSMENT THIS SHIFT AND HAS REFUSED SHOWER. PT HAS NOT ACTIVELY PARTICIPATED IN GROUP ACTIVITIES, BUT HAS BEEN PRESENT IN DAY ROOM DURING ACTIVITIES. EXIT-SEEKING AT TIMES, BUT IS ABLE TO REDIRECT. P: REINFORCE MEDICATION EDUCATION, GIVE CLEAR INSTRUCTIONS, RE-ORIENT TO SURROUNDINGS NEEDED
[2020-07-08 20:00] VITALS: BP 134/55
[2020-07-08] MEDS: XALATAN BOTH EYES SCH (20:13)
[2020-07-08] MEDS: LIPITOR PO SCH (20:38)
[2020-07-08] MEDS: REMERON PO SCH (20:40)
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
[2020-07-09 08:11] LABS: BASOPHIL % 0.4 % (0.0-0.2); EOSINOPHIL # 0.2 10^3/uL (0.0-0.2); EOSINOPHIL % 4.4 % (0.0-5.0); LYMPHOCYTES # 2.59 10^3/uL1 (1.0-4.8); LYMPHOCYTES % 49.2 % (24.0-44.0); MEAN CORP HGB 31.9 pg (26-34); MONOCYTES # 0.5 10^3/uL (0.3-0.8); MONOCYTES % 9.5 % (5.0-12.0); NEUTROPHIL # 1.9 10^3/uL (1.8-7.7); NEUTROPHILS % 36.5 % (41.0-85.0); RED CELL DISTRIBUTION WIDTH 11.9 % (11.5-14.5)
[2020-07-09 08:13] VITALS: BP 157/77
[2020-07-09] MEDS: PROTONIX PO SCH (08:17)
[2020-07-09] MEDS: THERA PO SCH (08:17)
[2020-07-09] MEDS: DEPAKENE PO SCH ×2 (08:17→20:06)
[2020-07-09] MEDS: ASPIRIN PO SCH (08:17)
[2020-07-09] MEDS: APRESOLINE PO SCH ×3 (08:17→20:06)
[2020-07-09] MEDS: COLACE PO SCH ×2 (08:17→21:00)
[2020-07-09] MEDS: ZYPREXA ZYDIS SL SCH ×2 (08:17→20:07)
[2020-07-09] MEDS: LOPRESSER PO SCH ×2 (08:18→20:07)
[2020-07-09] MEDS: NORVASC PO SCH (08:18)
[2020-07-09 08:22] LABS: CALCIUM 9.8 mg/dL (8.4-10.5); CARBON DIOXIDE 26.5 mmol/L (20.0-32)
[2020-07-09] MEDS: FLONASE NS SCH (08:25)
--- NOTE | 2020-07-09 10:51 | NUR ---
TX TEAM PT WAS SEEN BY DR. FINN VIA TELEMEDICINE. NO NEW ORDERS RECEIVED AT THIS TIME.
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
[2020-07-09 19:35] VITALS: BP 129/72
[2020-07-09] MEDS: XALATAN BOTH EYES SCH (20:05)
[2020-07-09] MEDS: LIPITOR PO SCH (20:06)
[2020-07-09] MEDS: REMERON PO SCH (20:08)
--- NOTE | 2020-07-10 04:29 | NUR ---
P.I.R.P. P. ALTERATION IN THOUGHT PROCESS. I. PROVIDE EVERY 15 MINUTE CHECKS, PROVIDE SAFE ENVIRONMENT, PROVIDE MEDICATIONS ORDERED PER MD, PROVIDE EDUCATION REFERENCE MEDICATIONS, PROVIDE 1:1 INTERVENTION TO ALLOW PATIENT TO EXPRESS FEELINGS. MONITOR FOR CHANGES IN COGNITIVE STATUS. RE ORIENT AND REDIRECT NEEDED. PROVIDE TASK ORIENTED GROUP ACTIVITY AND ENCOURAGE PARTICIPATION. R. PATIENT COMPLIANT WITH MOST MEDS, ONLY TOOK PORTION OF LIQUID DEPAKOTE. PATIENT APPEARED ANXIOUS AT TIMES BUT DENIED ANXIETY, DENIED DEPRESSION, DENIES HALLUCINATIONS, DENIES SUICIDAL THOUGHTS. PATIENT IS CONFUSED AND FORGETFUL. THINKS THIS IS HER APARTMENT. PATIENT REFUSED GROUP. VOICED SHE WAS SO TIRED AND WANTED TO SLEEP. P. CONTINUE CURRENT PLAN OF CARE. Addendum: 07/10/20 at 0435 by ARJUN AlfredoBHKirsten LOWE PATIENT HAS SLEPT 6.75 HOURS THUS FAR THIS SHIFT.
[2020-07-10 08:01] VITALS: BP 144/71
[2020-07-10] MEDS: FLONASE NS SCH (09:00)
[2020-07-10] MEDS: NORVASC PO SCH (09:00)
[2020-07-10] MEDS: LOPRESSER PO SCH ×2 (10:35→20:17)
[2020-07-10] MEDS: ZYPREXA ZYDIS SL SCH ×2 (10:35→20:17)
[2020-07-10] MEDS: ASPIRIN PO SCH (10:35)
[2020-07-10] MEDS: APRESOLINE PO SCH ×3 (10:35→20:16)
[2020-07-10] MEDS: COLACE PO SCH ×2 (10:35→20:19)
[2020-07-10] MEDS: PROTONIX PO SCH (10:36)
[2020-07-10] MEDS: DEPAKENE PO SCH ×2 (10:36→20:18)
[2020-07-10] MEDS: THERA PO SCH (10:36)
--- NOTE | 2020-07-10 11:23 | PRM.PN ---
Mood: "I'M GREAT" SHE DENIES DEPRESSIVE SYMPTOMS. Sleep: SLEPT 8.5 HOURS Appetite: GOOD Suidical thoughts: DENIES Homicidal thoughts: DENIES Recent stressors: INCREASED AGITATION Family support: GOOD Aggressive Behavior: DECREASED SINCE MONDAY Ability to Perform ADL'sc: ASSISTANCE NEEDED Psychotic sympstoms: DENIES, NONE NOTED Manic Symptoms: NONE NOTED Living situation: ASSISTED LIVING, SEEKING PLACEMENT. Illicit Drug usec: NONE Alcoholo use: NONE Tobacco use: NONE Family,PT,Surgical,&Current HX: (1) Delusional disorder (2) Dementia Anxity Symptoms: DENIES Anger/Irritablility: IMPROVED RECENTLY Muscle Strength & Tone: WNL Gait & Station: WNL (USING WALKER) Appearance: Well groomed/hygience, Casual attire, Appears age stated Attitude & Behaviour: Cooperative/Pleasant, Good eye contact Mood & Affect: Euthymic/appr/congruent Orientation: Disoriented to time Attention/Concentration: Good attention, Good concentration Speech: Reg rate/vol/rhyth/prosod Judgement/Insight: Fair judgement, Fair insight Thought Process: Linear/goal directed Language: Irish Thought content/Abnormal/Psych: None/normal Fund of Knowledge: WN Associations: AUSTYN Memory (recent and remote): Recent memory repaired Constitutional: None Neurological: None Psychiatric: None [place] I: DELUSIONAL DISORDER, DEMENTIA [place] II: DEFERRED [place] III: SEE MEDICAL CHART [place] IV: COGNITIVE DECLINE [place] V: 40 Assessment/Plan Assessment/Plan Assessment/Plan THE PATIENT WAS SEEN BY [facility]IA TELEMEDICINE EQUIPMENT (SUPPORTED BY [facility]) ALONG WITH THE TREATMENT TEAM. MOOD IMPROVEMENT NOTE RECENTLY. APPETITE AND SLEEP HAVE IMPROVED. SHE IS TOLERATING HER MEDICATIONS WELL. SHE HAS NO ACUTE COMPLAINTS TODAY. NO USE OF PRN MEDICATIONS RECENTLY. ASSESSMENT:DELUSIONAL DISORDER, DEMENTIA PLAN: 1. CONTINUE BEHAVIORAL HEALTH MANAGEMENT. POSSIBLE DISCHARGE MONDAY AFTER EVAL WITH ASSISTED LIVING. 2. CONTINUE CURRENT MEDICATIONS PRESCRIBED. STAFF AGREEABLE WITH PLAN 3. ALL PATIENT QUESTIONS ANSWERED RELATED TO MEDICATIONS, PLAN OF CARE, AND EXPECTED OUTCOMES. 4. SAFETY PLAN DISCUSSED. DUONG MANNING NP Jul 10, 2020 11:23
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
--- NOTE | 2020-07-10 15:18 | DIET.OP ---
Nutrition Asmt/Malnutrit 2-17 Actual Date of Review: Jul 10, 2020 Nutritional Screening: LOS Diagnosis: MDD Pertinent Medical Hx/Surgical: bipolar, dementia, HLD, HTN, CKD, hypothyroidism, chronic constipation Subjective Information: telehealth assessement due to LOS- contacted [facility]ACHINE OPERATOR and requested wt measurement. Pt tolerating regular diet well with no c/s difficulty Current Diet Order/Nutrition S: regular Pertinent Labs BUN 49, creatinine 2.35, A1c 5.4 Height (Feet): 5 Height (Inches): 7 Current Weight: 125 (estimated by staff) Weight Status: Appropriate GI Symptoms: None Food Allergies: No Current %PO: 90-100% Nutritional Problem: No Cur. Nutritional Probl RD Comments: Continue regular diet, encouraging po intake Recommend weight measurement - requested today Monitor renal function Expected Outcomes 90-100% po intake of meals the next 7 days. Discharge on regular diet Malnutrtion/Nutrition Risk Edu: No MD Notificiation Needed?: No Anais Zarco Jul 10, 2020 15:18
--- NOTE | 2020-07-10 16:15 | NUR ---
FACE TO FACE: \PT HAD FACE TO FACE ASSESSMENT WITH [facility]. PT WAS WILLING TO GO TO [facility] UPON DISCHARGE. SW FAXED CLINICAL UPDATE FOR REVIEW. PT IS PENDING ACCEPTANCE INTO [facility] AT THIS TIME.
--- NOTE | 2020-07-10 17:57 | NUR ---
PIRP: P: ALTERATION THOUGHT PROCESS I: PROVIDE MEDICATIONS ORDERED BY PHYSICIAN. ENCOURRAGE ATTENDANCE AND PARTICIPTION OF ALL GROUPS. PROVIDE SAFE ENVIRONMENT. MONITOR PATIENT FOR PSYCHOTIC SYMPTOMS R: PATIENT HAS TAKEN ALL MEDICATIONS ORDERED. PATIENT HAS PARTICIPATED IN GROUPS. HAS BEEN COOPERATIVE. REMAINS CONFUSED AT TIMES BUT DENIES DEPRESSION, ANXIETY AND SUICIDAL IDEATION. P: CONTINUE CURRENT PLAN OF CARE.
[2020-07-10 19:31] VITALS: BP 138/52
[2020-07-10] MEDS: REMERON PO SCH (20:15)
[2020-07-10] MEDS: LIPITOR PO SCH (20:15)
[2020-07-10] MEDS: XALATAN BOTH EYES SCH (20:15)
--- NOTE | 2020-07-11 02:34 | NUR ---
PIRP- P- ALTERED THOUGHT PROCESS I- PROVIDE SAFE AND SUPPORTIVE ENVIRONMENT,PROVIDE MEDICATION ORDERED,Q 15 MIN. MONITORING R- PT. DENIED DEPRESSION AND ANXIETY TONIGHT. ATTENDED GROUP,FLAT AFFECT AND ATE SNACKS. PARTICIPATED IN GROUP ACTIVITIES. QUIET AND DID NOT INITIATE INTERACTION BUT RESPONDED TO APPROACH. TOOK MEDICATION ORDERED. USED WALKER WHEN AMBULATING. EDUCATION ON FALL PRECAUTIONS AND PT. VOICED UNDERSTANDING.RESTING IN BED WITH EYES CLOSED AT THIS TIME. P- WILL CONTINUE TO PROVIDE 1:1 INTERVENTION ALLOWING PT. TO EXPRESS THOUGHTS AND FEELINGS.
[2020-07-11 08:25] VITALS: BP 140/70
[2020-07-11] MEDS: FLONASE NS SCH (08:29)
[2020-07-11] MEDS: DEPAKENE PO SCH (08:34)
[2020-07-11] MEDS: PROTONIX PO SCH (08:34)
[2020-07-11] MEDS: LOPRESSER PO SCH ×2 (08:35→20:08)
[2020-07-11] MEDS: NORVASC PO SCH (08:35)
[2020-07-11] MEDS: THERA PO SCH (08:35)
[2020-07-11] MEDS: ZYPREXA ZYDIS SL SCH ×2 (08:35→20:11)
[2020-07-11] MEDS: ASPIRIN PO SCH (08:36)
[2020-07-11] MEDS: APRESOLINE PO SCH ×3 (08:36→20:09)
[2020-07-11] MEDS: COLACE PO SCH ×2 (08:36→20:07)
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
--- NOTE | 2020-07-11 15:01 | PRM.PN ---
Mood: DENIES ANY MOOD INSTABILITY AT THIS TIME. Sleep: SLEPT 6.25 HOURS- BROKEN SLEEP Appetite: GOOD Suidical thoughts: DENIES Homicidal thoughts: DENIES Recent stressors: COGNITIVE DECLINE Family support: GOOD Aggressive Behavior: NONE NOTED Ability to Perform ADL'sc: FAIR Psychotic sympstoms: DENIES Manic Symptoms: NONE NOTE Living situation: RESIDENTIAL Illicit Drug usec: NONE Alcoholo use: NONE Tobacco use: NONE Family,PT,Surgical,&Current HX: (1) Delusional disorder (2) Dementia Anxity Symptoms: DENIES Anger/Irritablility: NONE NOTED Muscle Strength & Tone: WNL Gait & Station: Normal stance/post/gait (AMBULATES WITH WALKER) Appearance: Well groomed/hygience, Appears age stated Attitude & Behaviour: Cooperative/Pleasant Mood & Affect: Euthymic/appr/congruent Orientation: Disoriented to time, Disoriented to situation Attention/Concentration: Fair attention, Fair concentration Speech: Reg rate/vol/rhyth/prosod Judgement/Insight: Fair judgement, Fair insight Thought Process: Loose Language: Polish Thought content/Abnormal/Psych: None/normal Fund of Knowledge: Other (LIMITED) Associations: A[place] Memory (recent and remote): Recent memory repaired, Remote memory repaired Constitutional: Insomnia Neurological: None Psychiatric: None [place] I: DELUSIONAL DISORDER, DEMENTIA [place] II: DEFERRED [place] III: SEE MEDICAL CHART [place] IV: COGNITIVE DECLINE [place] V: 40 Assessment/Plan Assessment/Plan Plan Vital Signs Date Time Temp Pulse Resp B/P (MAP) Pulse Ox O2 Delivery O2 Flow Rate FiO2 07/11/20 08:36 74 140/70 07/11/20 08:25 98.0 16 99 Room Air Allergies Coded Allergies Type Severity Reaction Last Updated Verified Penicillins Allergy Unknown unknown 06/30/20 Yes Sulfa (Sulfonamide Antibiotics) Allergy Unknown 06/30/20 Yes celecoxib Allergy Unknown 06/30/20 Yes Intake and Output 07/11/20 07:00 Intake Total 1566 ml Balance 1566 ml Intake Oral 1566 ml # Voids 4 THE PATIENT WAS SEEN BY DUONG MANNING VIA TELEMEDICINE EQUIPMENT (SUPPORTED BY [facility]) ALONG WITH THE TREATMENT TEAM. SHE HAS NOT REQUIRED ANY PRN MEDICATIONS RECENTLY. SHE DENIES ANY PROBLEMS WITH MOOD INSTABILITY AT THIS TIME. SHE IS TOLERATING HER MEDICATIONS WELL. SHE DENIES SI/HI/AV/VH. SHE HAS NO ACUTE COMPLAINTS AT THIS TIME. VPA IS PENDING FROM 07/09/2020. ASSESSMENT: DELUSIONAL DISORDER, DEMENTIA PLAN: 1. CONTINUE BEHAVIORAL HEALTH MANAGEMENT. 2. CONTINUE CURRENT MEDICATIONS PRESCRIBED. STAFF AGREEABLE WITH PLAN. CHANGE LIQUID DEPAKOTE TO PILLS. 3. ALL PATIENT QUESTIONS ANSWERED RELATED TO MEDICATIONS, PLAN OF CARE, AND EXPECTED OUTCOMES. 4. SAFETY PLAN DISCUSSED. DUONG MANNING NP Jul 11, 2020 15:01
--- NOTE | 2020-07-11 18:03 | NUR ---
PIRP: P: ALTERATION THOUGHT PROCESS I: PROVIDE MEDICATIONS ORDERED BY PHYSICIAN. ENCOURRAGE ATTENDANCE AND PARTICIPTION OF ALL GROUPS. PROVIDE SAFE ENVIRONMENT. MONITOR PATIENT FOR PSYCHOTIC SYMPTOMS R: PATIENT TOOK ALL MEDICATIONS ORDERED AND HER MOOD HAS BEEN PLEASANT WITHOUT MOOD SWINGS. SHE REMAINS CONFUSED AND DISORIENTED AT TIMES.. PATIENT IS FIXATED ON A BRA THAT IS MISSING. STAFF HAS SEARCHED THE UNIT WITHOUT ANY SUCCESS. P: CONTINUE CURRENT PLAN OF CARE.
[2020-07-11 19:32] VITALS: BP 170/92
[2020-07-11] MEDS: LIPITOR PO SCH (20:07)
[2020-07-11] MEDS: REMERON PO SCH (20:08)
[2020-07-11] MEDS: XALATAN BOTH EYES SCH (20:10)
[2020-07-11] MEDS: DEPAKOTE EC PO SCH (20:12)
--- NOTE | 2020-07-12 01:49 | NUR ---
PIRP- P- ALTERATION IN THOUGHT PROCESS I- PROVIDE SAFE AND SUPPORTIVE ENVIRONMENT,PROVIDE MEDICATION ORDERED.Q 15 MIN. MONITORING AND RECORDING . R- PT. DENIES DEPRESSION AND ANXIETY TONIGHT. PLEASANT AFFECT. INITIATES INTERACTION WITH PEERS AND STAFF. ATTENDED GROUP,ATE SNACKS AND PARTICIPATED IN GROUP ACTIVITY. ATE SNACKS TOOK MEDICATION ORDERED.RESTING IN BED WITH EYES CLOSED AT THIS TIME. P- WILL CONTINUE TO PROVIDE 1:1 INTERVENTION ALLOWING PT. TO EXPRESS THOUGHTS AND FEELINGS. P WILL CONTINUE TO PROVIDE 1 ON 1 INTERVENTION ALLOWING PT. TO EXPRESS THOUGHTS AND FEELING.
[2020-07-12] MEDS: COLACE PO SCH ×2 (08:47→20:07)
[2020-07-12] MEDS: PROTONIX PO SCH (08:47)
[2020-07-12] MEDS: ASPIRIN PO SCH (08:47)
[2020-07-12] MEDS: FLONASE NS SCH (08:47)
[2020-07-12] MEDS: THERA PO SCH (08:47)
[2020-07-12] MEDS: LOPRESSER PO SCH ×2 (08:48→20:10)
[2020-07-12] MEDS: ZYPREXA ZYDIS SL SCH ×2 (08:48→20:09)
[2020-07-12] MEDS: DEPAKOTE EC PO SCH ×2 (08:48→20:07)
[2020-07-12] MEDS: NORVASC PO SCH (08:48)
[2020-07-12 08:49] VITALS: BP 137/90
[2020-07-12] MEDS: APRESOLINE PO SCH ×3 (08:54→20:09)
--- NOTE | 2020-07-12 14:21 | NUR ---
TELEMEDICINE PT WAS SEEN BY Genesis MANNING NP VIA TELEMEDICINE. NO NEW ORDERS.
--- NOTE | 2020-07-12 14:21 | PRM.PN ---
Mood: STABLE, NO ACUTE COMPLAINTS. Sleep: SLEPT 8.75 HOURS Appetite: GOOD Suidical thoughts: DENIES Homicidal thoughts: DENIES Recent stressors: COGNITIVE DECLINE Family support: GOOD Aggressive Behavior: NONE NOTED Ability to Perform ADL'sc: ASSITANCE NEEDED Psychotic sympstoms: NONE NOTED Manic Symptoms: NONE Living situation: JAIL Illicit Drug usec: NONE Alcoholo use: NONE Tobacco use: NONE Family,PT,Surgical,&Current HX: (1) Delusional disorder (2) Dementia Anxity Symptoms: DENIES Anger/Irritablility: IMPROVED, GETTING ALONG WELL WITH OTHERS. Muscle Strength & Tone: WNL Gait & Station: WN (AMBULATES WITH WALKER) Appearance: Well groomed/hygience, Casual attire, Appears age stated Attitude & Behaviour: Cooperative/Pleasant, Good eye contact Mood & Affect: Euthymic/appr/congruent Orientation: Disoriented to time, Disoriented to situation Attention/Concentration: Good attention, Good concentration Speech: Reg rate/vol/rhyth/prosod Judgement/Insight: Fair judgement, Fair insight Thought Process: Linear/goal directed Language: Chinese Thought content/Abnormal/Psych: None/normal Fund of Knowledge: Other (LIMITED) Associations: WNL/Normal Associations Memory (recent and remote): Gross int/not form assess Constitutional: None Neurological: None Psychiatric: None [place] I: DELUSIONAL DISORDER, DEMENTIA [place] II: DEFERRED [place] III: SEE MEDICAL CHART [place] IV: COGNITIVE DECLINE [place] V: 40 Assessment/Plan Assessment/Plan Assessment/Plan Vital Signs Date Time Temp Pulse Resp B/P (MAP) Pulse Ox O2 Delivery O2 Flow Rate FiO2 07/12/20 08:49 97.4 77 18 137/90 (106) 98 Room Air Allergies Coded Allergies Type Severity Reaction Last Updated Verified Penicillins Allergy Unknown unknown 06/30/20 Yes Sulfa (Sulfonamide Antibiotics) Allergy Unknown 06/30/20 Yes celecoxib Allergy Unknown 06/30/20 Yes Intake and Output 07/12/20 07:00 Intake Total 1497 ml Balance 1497 ml Intake Oral 1497 ml THE PATIENT WAS SEEN BY DUONG MANNING VIA TELEMEDICINE EQUIPMENT ([facility]ED [facility]) ALONG WITH THE TREATMENT TEAM. SHE HAS NO ACUTE COMPLAINTS TODAY. SHE REPORTS EATING AND SLEEPING WELL. SHE IS COMPLIANT WITH HER MEDICATIONS. SHE DENIES ANY SIDE EFFECTS AT THIS TIME. SHE IS COOPERATIVE ON THE UNIT. SHE DENIES SI/HI. ASSESSMENT: DELUSIONAL DISORDER, DEMENTIA PLAN: 1. CONTINUE BEHAVIORAL HEALTH MANAGEMENT. 2. CONTINUE CURRENT MEDICATIONS PRESCRIBED. STAFF AGREEABLE WITH PLAN 3. ALL PATIENT QUESTIONS ANSWERED RELATED TO MEDICATIONS, PLAN OF CARE, AND EXPECTED OUTCOMES. 4. SAFETY PLAN DISCUSSED. DUONG MANNING NP Jul 12, 2020 14:21
--- NOTE | 2020-07-12 17:42 | NUR ---
PIRP P-ALTERATION IN MOOD, DTO I-MONITOR Q 15 MINUTES, PROVIDE SAFE ENVIRONMENT. PROVIDE MEDICATION DIRECTED BY THE DR. MONITOR PATIENT FOR PSYCHOTIC SYMPTOMS. ENCOURAGE ATTENDANCE/PARTICIPATION IN GROUPS. PROVIDE 1:1 TO ENCOURAGE EXPRESSION OF FEELINGS. RE-ORIENT NEEDED. GIVE CLEAR AND SIMPLE INSTRUCTIONS. ENCOURAGE SOCIAL INTERACTION. R-PT IS MONITORED Q 15 MINUTES FOR SAFETY. PT HAS TAKEN MEDICATIONS DIRECTED BY DR. PT HAS SOCIALIZED WITH PEERS. PT ALLOWED TIME TO EXPRESS SELF. ORIENTED TO SELF, REORIENTED TO PLACE AND TIME. P-CONT CURRENT PLAN OF CARE
[2020-07-12 19:30] VITALS: BP 150/76
[2020-07-12] MEDS: XALATAN BOTH EYES SCH (20:04)
[2020-07-12] MEDS: REMERON PO SCH (20:07)
[2020-07-12] MEDS: LIPITOR PO SCH (20:10)
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
--- NOTE | 2020-07-13 05:44 | NUR ---
PIRP- P- DTO AND ALTERED THOUGHT PROCESS I- PROVIDE SAFE AND SUPPORTIVE ENVIRONMENT,PROVIDE MEDICATION EDUCATION AND OFFER MEDICATIONS ORDERED. Q 15 MIN. MONITORING. R- PT. ORIENTED TIMES THREE. DENIES DEPRESSION AND ANXIETY. ISIDRO SI. ATTENDED GROUP,ATE SNACKS AND PARTICIPATED IN GROUP ACTIVITIES. INITIATED INTERACTION. TOOK MEDICATION ORDERED. PLEASANT AFFECT. NO INAPPROPRIATE BEHAVIORS NOTED THIS SHIFT. RESTING IN BED WITH EYES CLOSED AT THIS TIME. P- WILL CONTINUE TO PROVIDE 1:1 INTERVENTION ALLOWING PT. TO EXPRESS THOUGHTS AND FEELINGS. PROVIDE SAFE AND SUPPORTIVE ENVIRONMENT.
--- NOTE | 2020-07-13 08:05 | NUR ---
DC UPDATE: PT WAS ACCEPTED INTO [facility]. PT'S FAMILY WAS GOOD WITH HER GOING. THEY PACKED HER BELONGINGS UP AT [facility] AND ARE GOING TO HAVE MOVERS MOVE HER IN TOMORROW AND PICK PT UP Monday07/15/2020. NO FURTHER NEEDS NOTED AT THIS TIME. GOAL IS TO DISCHARGE TO [facility] ON MONDAY AND HAVE [facility] FOLLOW FOR PSYCHIATRIC MANAGEMENT.
[2020-07-13 08:53] VITALS: BP 151/78
[2020-07-13] MEDS: ZYPREXA ZYDIS SL SCH ×2 (09:12→20:22)
[2020-07-13] MEDS: THERA PO SCH (09:12)
[2020-07-13] MEDS: LOPRESSER PO SCH ×2 (09:12→20:22)
[2020-07-13] MEDS: DEPAKOTE EC PO SCH ×2 (09:12→20:23)
[2020-07-13] MEDS: PROTONIX PO SCH (09:12)
[2020-07-13] MEDS: NORVASC PO SCH (09:12)
[2020-07-13] MEDS: ASPIRIN PO SCH (09:13)
[2020-07-13] MEDS: FLONASE NS SCH (09:13)
[2020-07-13] MEDS: COLACE PO SCH ×2 (09:13→20:20)
[2020-07-13] MEDS: MIRALAX PO SCH (09:13)
[2020-07-13] MEDS: APRESOLINE PO SCH ×3 (09:13→20:21)
--- NOTE | 2020-07-13 11:25 | NUR ---
Covid s: Patient needs Covid 19 test for discharge. b: No symptoms, has tested negative in early June, prior to admission to [facility], as per Note on chart from patient's former residence a:This RN attempted to obtain Covid Antigen test with limited success due to patient's mentation and refusal to fully cooperate with procedure. Both nare swabs done, withdrawn by patient. r: Patient became angry, stated,"I have had this done before by a professional and you are not a professional!" Refused second swab for State, order canceled. Results of rapid test -Covid at 1140.
--- NOTE | 2020-07-13 12:42 | PRM.PN ---
Mood: RAMOS SINCE SHE RECEIVED HER SWAB. OTHERWISE SHE WAS FINE. Sleep: SLEPT 6 HOURS Appetite: GOOD Suidical thoughts: DENIES Homicidal thoughts: DENIES Recent stressors: COGNITIVE DECLINE Family support: GOOD Aggressive Behavior: ANGRY THIS MORNING DUE TO RECEIVING A COVID SWAB Ability to Perform ADL'sc: GOOD Psychotic sympstoms: NONE NOTED Manic Symptoms: NONE NOTED Living situation: SEEKING PLACEMENT IN A ASSIST[facility] Illicit Drug usec: NONE Alcoholo use: NONE Tobacco use: NONE Family,PT,Surgical,&Current HX: (1) Delusional disorder (2) Dementia Anxity Symptoms: NONE NOTED Anger/Irritablility: SINCE THIS MORNING Muscle Strength & Tone: WNL Gait & Station: WNL (AMBULATES WITH A WALKER) Appearance: Well groomed/hygience, Casual attire, Normal weight, Appears age stated Attitude & Behaviour: Cooperative/Pleasant, Good eye contact Mood & Affect: Flat Orientation: Fully oriented per interv Attention/Concentration: Fair attention, Fair concentration Speech: Reg rate/vol/rhyth/prosod Judgement/Insight: Fair judgement, Fair insight Thought Process: Linear/goal directed Language: Tajik Thought content/Abnormal/Psych: None/normal Fund of Knowledge: WNL Associations: WNL/Normal Associations Memory (recent and remote): Gross int/not form assess Constitutional: None Neurological: None Psychiatric: None [place] I: DELUSIONAL DISORDER, DEMENTIA [place] II: DEFERRED [place] III: SEE MEDICAL CHART [place] IV: COGNITIVE DECLINE [place] V: 40 Assessment/Plan Assessment/Plan Assessment/Plan Vital Signs Date Time Temp Pulse Resp B/P (MAP) Pulse Ox O2 Delivery O2 Flow Rate FiO2 07/13/20 09:13 81 151/78 07/13/20 08:53 97.8 18 97 Room Air Allergies Coded Allergies Type Severity Reaction Last Updated Verified Penicillins Allergy Unknown unknown 06/30/20 Yes Sulfa (Sulfonamide Antibiotics) Allergy Unknown 06/30/20 Yes celecoxib Allergy Unknown 06/30/20 Yes Intake and Output 07/13/20 07:00 Intake Total 3376 ml Balance 3376 ml Intake Oral 3376 ml # Voids 12 THE PATIENT WAS SEEN BY DUONG MANNING VIA TELEMEDICINE EQUIPMENT (SUPPORTED BY [facility]) ALONG WITH THE TREATMENT TEAM. SHE BECAME ANGRY WITH ONE OF THE NURSES AFTER SHE WAS SWABBED FOR COVID-19. SHE IS EATING AND SLEEPING WELL. SHE HAS BEEN MEDICATION COMPLIANT. SHE DENIES ANY ACUTE COMPLAINTS AT THIS TIME. DENIES SI/HI/SH/AV AT THIS TIME. SHE IS TOLERATING HER MEDICATIONS WELL. SHE REPORTS HAVING SOME ANXIETY RELATED TO WANTING TO SPEAK TO HER SON. ASSESSMENT: DELUSIONAL DISORDER, DEMENTIA PLAN: 1. CONTINUE BEHAVIORAL HEALTH MANAGEMENT. POSSIBLE DISCHARGE IN 1-2 DAYS. 2. CONTINUE CURRENT MEDICATIONS PRESCRIBED. STAFF AGREEABLE WITH PLAN 3. ALL PATIENT QUESTIONS ANSWERED RELATED TO MEDICATIONS, PLAN OF CARE, AND EXPECTED OUTCOMES. 4. SAFETY PLAN DISCUSSED. DUONG MANNING NP Jul 13, 2020 12:42
--- NOTE | 2020-07-13 13:30 | NUR ---
Telemedicine Patient seen by Psychiatric professional Dr. Young. No changes.
[2020-07-13 15:12] VITALS: BP 133/75
--- NOTE | 2020-07-13 17:05 | NUR ---
PIRP P: ALTERATION IN MOOD; I: PROVIDE A SAFE AND SUPPORTIVE ENVIRONMENT; MONITOR FOR SAFETY EVERY 15 MINUTES; PROVIDE MEDICATIONS ORDERED BY PHYSICIAN WITH EXPLANATION OF NEED AND PURPOSE; PROVIDE 1:1 ALLOWING EXPRESSION OF THOUGHTS AND FEELINGS; PROVIDE REORIENTATION AND REDIRECTION NEEDED; APPROPRIATE GROUP ACTIVITIES, ENCOURAGE SOCIALIZATION; ASSESS LEVEL OF DEPRESSION AND ANXIETY; ASSESS FOR SI/HI; PSYCHOSIS R: Q 15 MINUTE MONITORING LOGGED; ALL NON PATIENT AREAS HAVE REMAINED LOCKS AND EXIT DOORS SECURED, WASHERETTE MACHINE OPERATOR GOES THROUGH THE DEPARTMENT AND IS AVAILABLE BY PHONE NEEDED; PATIENT DENIES DEPRESSION AND ANXIETY, HAS BEEN HATEFUL WITH THIS RN AT TIMES THROUGH THE DAY AFTER HER NASAL SWAB FOR COVID [SEE NOTE]; HAS FORMED A FRIENDSHIP WITH ANOTHER ELDERLY FEMALE PATIENT, SPENDS TIME WITH HER, HELPS HER, ATTENDED GROUP ACTIVITY WITH HER; THE LADIES HAVE FORMED A ZHOU, NOT INAPPROPRIATE; THIS PATIENT REASSURING TO THE OTHER LADY; BOTH LADIES MONITORED CLOSELY FOR ANTAGONISTIC BEHAVIOR ONE TO THE OTHER, WILL CONTINUE TO HAVE SEPARATE ROOMS; NO VOICES OR VISIONS; NO SI/HI; PATIENT TALKED TO HER SISTER ON THE TELEPHONE, TELLING HER SHE HAD TALKED TO A "MAN" EARLIER, THE MAN WAS TRYING TO IMPERSONATE HER SON, SHE ASKED HER SISTER TO CALL THE SON HE IN TURN CALLED THE UNIT, REASSURANCES GIVEN TO THE SON, PATIENT NOT "BLEEDING" FORM THE RECTUM PATIENT TOLD HER SISTER, HE DID ACTUALLY TALK TO HIS MOTHER AT 1400 THIS AFTERNOON P; DC TO [facility] IN [place] BY MONDAY
--- NOTE | 2020-07-13 17:31 | NUR ---
RADHATE DEMETRIUS MANNING NP NOTIFIED OF VALPROIC ACID LEVEL OF 35. NO NEW ORDERS RECEIVED AT THIS TIME.
[2020-07-13 19:40] VITALS: BP 156/67
[2020-07-13] MEDS: REMERON PO SCH (20:20)
[2020-07-13] MEDS: LIPITOR PO SCH (20:22)
[2020-07-13] MEDS: XALATAN BOTH EYES SCH (20:37)
--- NOTE | 2020-07-13 23:50 | NUR ---
PIRP- P- ALTERATION IN THOUGHT PROCESS I- PROVIDE SAFE AND SUPPORTIVE ENVIRONMENT,PROVIDE MEDICATION ORDERED AND Q 15 MIN. MONITORING. R- PT. DENIED DEPRESSION AND ANXIETY TONIGHT. NO AGGRESSIVE BEHAVIORS NOTED. ATTENDED GROUP AND ATE SNACKS. VISITS WITH ANOTHER FEMALE PEER AT TIMES. TOOK MEDICATION ORDERED. INITIATED INTERACTION. RESTING IN BED WITH EYES CLOSED AT THIS TIME. P- WILL CONTINUE TO PROVIDE 1:1 INTERVENTION ALLOWING FOR PT. TO EXPRESS THOUGHTS AND FEELINGS. GIVE CLEAR AND SIMPLE INSTRUCTIONS. PROVIDE MEDICATION ORDERED.
[2020-07-14 08:54] VITALS: BP 173/73
[2020-07-14] MEDS ORDERED: SYNTHROID PO SCH (09:00)
[2020-07-14] MEDS: THERA PO SCH (09:21)
[2020-07-14] MEDS: PROTONIX PO SCH (09:21)
[2020-07-14] MEDS: APRESOLINE PO SCH ×3 (09:21→20:08)
[2020-07-14] MEDS: ASPIRIN PO SCH (09:21)
[2020-07-14] MEDS: MIRALAX PO SCH (09:21)
[2020-07-14] MEDS: SYNTHROID PO SCH (09:22)
[2020-07-14] MEDS: DEPAKOTE EC PO SCH ×2 (09:22→20:09)
[2020-07-14] MEDS: COLACE PO SCH ×2 (09:22→20:07)
[2020-07-14] MEDS: LOPRESSER PO SCH ×2 (09:22→20:10)
[2020-07-14] MEDS: ZYPREXA ZYDIS SL SCH ×2 (09:22→20:07)
[2020-07-14] MEDS: NORVASC PO SCH (09:22)
[2020-07-14] MEDS: FLONASE NS SCH (09:23)
--- NOTE | 2020-07-14 12:07 | PRM.PN ---
Mood: doing good Sleep: 6.5 hours Appetite: well Suidical thoughts: denies hopeless Recent stressors: denies Family support: going to go back with my family Aggressive Behavior: not been present Ability to Perform ADL'sc: staff direction, knows how to dress herself, Psychotic sympstoms: perceptions not accurate, paranois of others stealing Manic Symptoms: will still hide items, Living situation: between placements Illicit Drug usec: na Alcoholo use: na Tobacco use: na Family,PT,Surgical,&Current HX: (1) Dementia (2) Delusional disorder Anxity Symptoms: denies Anger/Irritablility: not mad Muscle Strength & Tone: WNL Gait & Station: Ataxic (uses walker) Appearance: Well groomed/hygience Attitude & Behaviour: Cooperative/Pleasant Mood & Affect: Blunted (but improved) Orientation: Disoriented to time, Disoriented to situation Attention/Concentration: Fair attention, Fair concentration Speech: Reg rate/vol/rhyth/prosod Judgement/Insight: Fair judgement, Fair insight Thought Process: Circumferential Language: Luxembourgish Thought content/Abnormal/Psych: Delusions (mild paranoia with others stealing, she forgets where she hides items) Fund of Knowledge: WNL Associations: Other Constitutional: None Neurological: None Psychiatric: Psychosis (perceptions not accurate) [place] I: dementia, delusional disorder [place] IV: between placements Assessment/Plan Assessment/Plan Plan Nursing: mildly irritable today she has had more good days recently not been combative, less aggravated with things yesterday felt others hiding from her, only glimpses, she will stash things under her blanket, she often cannot locate things from where she hides them, discharge to [facility] in the future patient; delays in her decision making today whether she will attend eval in conference room 2 great grandkids are going to be born, excited about it excited to see my little doggy, mario roman, 8 yo not aware of town of [facility], been in here the whole time, I lived in [place] many years, going back to [place] Vital Signs Date Time Temp Pulse Resp B/P (MAP) Pulse Ox O2 Delivery O2 Flow Rate FiO2 07/14/20 09:22 62 173/73 07/14/20 08:54 97.7 20 98 07/13/20 19:40 Room Air Allergies Coded Allergies Type Severity Reaction Last Updated Verified Penicillins Allergy Unknown unknown 06/30/20 Yes Sulfa (Sulfonamide Antibiotics) Allergy Unknown 06/30/20 Yes celecoxib Allergy Unknown 06/30/20 Yes Current Medications Medications (Trade) Dose Ordered Sig/Danish PRN Reason Start Time Stop Time Status Last Admin Divalproex Sodium (Depakote Ec) 250 mg BID 07/11/20 21:00 08/10/20 20:59 07/14/20 09:22 Levothyroxine Sodium (Synthroid) 75 mcg ACB 07/14/20 08:00 08/13/20 08:59 07/14/20 09:22 Polyethylene Glycol (Miralax) 17 gm DAILY 07/13/20 09:00 08/12/20 08:59 07/14/20 09:21 Psychotropics: depakote 250mg bid olanzapine 2.5mg bid remeron 7.5mg daily at hs summary: patient able to have conversation today she will forget where things are but engages in conversation, even tells me she is looking forward to new great grandkids, not aggressive, partial smile with humor, smiles about new great grandkids, marked improvement, does not maintain orientation ASSESSMENT: DELUSIONAL DISORDER, DEMENTIA PLAN: 1. CONTINUE BEHAVIORAL HEALTH MANAGEMENT. POSSIBLE DISCHARGE IN 1-2 DAYS. 2. CONTINUE CURRENT MEDICATIONS PRESCRIBED. STAFF AGREEABLE WITH PLAN 3. ALL PATIENT QUESTIONS ANSWERED RELATED TO MEDICATIONS, PLAN OF CARE, AND EXPECTED OUTCOMES. 4. SAFETY PLAN DISCUSSED. TARAS VIRAMONTES NP Jul 14, 2020 12:07
--- NOTE | 2020-07-14 12:25 | NUR ---
TELEMED PT WAS SEEN BY Yuki VIRAMONTES NP. NO NEW ORDERS RECEIVED AT THIS TIME.
[2020-07-14 14:47] VITALS: BP 145/68
--- NOTE | 2020-07-14 17:48 | NUR ---
PIRP P: ALTERATION IN MOOD, CONFUSION I: Q15 MIN MONITORING, REDIRECT WITH VERBALIZATION, ASSESS REASONS FOR IRRITABILITY, GIVE CLEAR AND SIMPLE INSTRUCTIONS, GIVE MEDICATIONS ORDERED, ALTERNATE REST/ACTIVITY, PROVIDE SAFE AND SUPPORTIVE ENVIRONMENT, PROVIDE TASK-ORIENTED ACTIVITIES R: PT HAS FLAT, IRRITABLE AFFECT THROUGHOUT SHIFT, MOSTLY PLEASANT TO APPROACH. HAS NOT EXHIBITED THREATENING OR COMBATIVE BEHAVIORS. TAKES MEDICATIONS ORDERED, PARTICIPATES IN GROUP ACTIVITIES WITH PROMPTING, AND INTERACTS APPROPRIATELY WITH PEERS. NO HALLUCINATIONS NOTED, EXHIBITS SOME DELUSIONAL THOUGHTS D/T CONFUSION, BUT IS ABLE TO BE REDIRECTED WITH VERBALIZATION. P: PLANS FOR PT TO DISCHARGE TOMORROW, 07/15/2020 TO [facility] IN [place], [place].
[2020-07-14] MEDS: REMERON PO SCH (20:07)
[2020-07-14] MEDS: LIPITOR PO SCH (20:08)
[2020-07-14] MEDS: XALATAN BOTH EYES SCH (20:10)
[2020-07-14 20:45] VITALS: BP 135/57
[2020-07-15] MEDS: SYNTHROID PO SCH (05:41)
--- NOTE | 2020-07-15 05:46 | NUR ---
P.I.R.P. P. ALTERATION IN MOOD I. PROVIDE EVERY 15 MINUTE CHECKS, PROVIDE SAFE ENVIRONMENT, PROVIDE MEDICATIONS ORDERED BY MD. PROVIDE 1:1 INTERVENTION TO ALLOW PATIENT TO EXPRESS FEELINGS, PROVIDE TASK ORIENTED GROUP ACTIVITY AND ENCOURAGE PARTICIPATION. RE DIRECT AND RE ORIENT NEEDED. MONITOR FOR CHANGES IN COGNITIVE STATUS. R. PATIENT TOOK MEDICATIONS ORDERED, DID REPORT ITCHY LEGS, FIRST VOICED SHE HAD NOT BEEN SCRATCHING LEGS THEN VOICED 'WELL I NEED TO QUIT SCRATCHING MY LEGS", PATIENT DID HAVE SMALL DULL RED SCRATCHED AREAS TO BILATERAL LOWER ANTERIOR LEGS, NO OPEN AREAS, NO SURROUNDING REDNESS. PATIENT ATTENDED GROUP ACTIVITY. PATIENT IS FORGETFUL. HAS BEEN PLEASANT. P. CONTINUE CURRENT PLAN OF CARE, PATIENT DUE TO BE DISCHARGED 07/15/2020.
--- NOTE | 2020-07-15 08:17 | NUR ---
TELEMED PT WAS SEEN BY Yuki VIRAMONTES NP. RECEIVED ORDERS TO DISCHARGE PATIENT.
[2020-07-15 08:32] VITALS: BP 124/72
[2020-07-15] MEDS: NORVASC PO SCH (08:51)
[2020-07-15] MEDS: LOPRESSER PO SCH (08:51)
[2020-07-15] MEDS: COLACE PO SCH (08:51)
[2020-07-15] MEDS: ZYPREXA ZYDIS SL SCH (08:51)
[2020-07-15] MEDS: PROTONIX PO SCH (08:51)
[2020-07-15] MEDS: DEPAKOTE EC PO SCH (08:51)
[2020-07-15] MEDS: THERA PO SCH (08:51)
[2020-07-15] MEDS: ASPIRIN PO SCH (08:51)
[2020-07-15] MEDS: MIRALAX PO SCH (08:52)
[2020-07-15] MEDS: FLONASE NS SCH (08:52)
--- NOTE | 2020-07-15 08:52 | PRM.PN ---
Mood: good, ready for breakfast Sleep: 5.25 hours Appetite: good Suidical thoughts: denies, going to [facility] statement was being at peace Homicidal thoughts: denies Recent stressors: she reports ready to see her son,d ischarge Family support: son Aggressive Behavior: not present Ability to Perform ADL'sc: minimal direction on adls Psychotic sympstoms: not present but not always oriented Manic Symptoms: not present Living situation: between placements Illicit Drug usec: na Alcoholo use: na Tobacco use: na Family,PT,Surgical,&Current HX: (1) Dementia (2) Delusional disorder Anxity Symptoms: denies Anger/Irritablility: no longer present Muscle Strength & Tone: WNL Gait & Station: Ataxic (uses walker well) Appearance: Well groomed/hygience Attitude & Behaviour: Cooperative/Pleasant Mood & Affect: Full Orientation: Disoriented to place Attention/Concentration: Fair attention, Fair concentration Speech: Reg rate/vol/rhyth/prosod Judgement/Insight: Fair judgement, Fair insight Thought Process: Linear/goal directed Language: Lithuanian Thought content/Abnormal/Psych: None/normal Fund of Knowledge: WNL Associations: Other Constitutional: None Neurological: None Psychiatric: Depressed (present upon admission but resolved), Psychosis (perceptions not always accurate but improved) [place] I: delusional disorder, dementia [place] IV: snf Assessment/Plan Assessment/Plan Plan Nursing: no aggression, does hide her clothes believing some were stolen but less accusatory she listened to another patient read yesterday for almost 2 hours, pleasant in correspondence with resident, will give the patient directions on what to do such as meal time- appropriately random comment yesterday about going to [facility], not distressed or suicidal at the time she mostly dresses herself, can make her bed, she played dolls as activity yesterday with another patient patient; She is happy to discharge today and is glad she will see her son today, says he will be giving her a ride it is materials scientist, she tells me she does not drink coffee or tea as they are bad for her kidneys but she is looking forward to "filling this big belly of mine" as she pats her stomach she is grateful for her car, says she has enjoyed visiting with me she says 2021 instead of 2019 and then tells me she should have just looked up at the board which has the date (knows orientation board) she cannot think of [place] but reminds me she used to visit her all the time when she lived in [place], she denies pain, no weakness quick recall of her own Vital Signs Date Time Temp Pulse Resp B/P (MAP) Pulse Ox O2 Delivery O2 Flow Rate FiO2 07/15/20 08:32 97.4 73 20 124/72 (89) 97 Room Air Allergies Coded Allergies Type Severity Reaction Last Updated Verified Penicillins Allergy Unknown unknown 06/30/20 Yes Sulfa (Sulfonamide Antibiotics) Allergy Unknown 06/30/20 Yes celecoxib Allergy Unknown 06/30/20 Yes Current Medications Medications (Trade) Dose Ordered Sig/Danish PRN Reason Start Time Stop Time Status Last Admin Levothyroxine Sodium (Synthroid) 75 mcg ACB 07/14/20 08:00 08/13/20 08:59 07/15/20 05:41 Polyethylene Glycol (Miralax) 17 gm DAILY 07/13/20 09:00 08/12/20 08:59 07/14/20 09:21 Psychotropics: depakote 250mg bid olanzapine 2.5mg bid remeron 7.5mg daily at hs summary: She is able to converse, not getting annoyed when she cannot hear question although this appears improved, she is smiling more, quite pleasant, she is able to relax, ASSESSMENT: DELUSIONAL DISORDER, DEMENTIA PLAN: 1. DISCHARGE TODAY 2. CONTINUE CURRENT MEDICATIONS PRESCRIBED. STAFF AGREEABLE WITH PLAN 3. ALL PATIENT QUESTIONS ANSWERED RELATED TO MEDICATIONS, PLAN OF CARE, AND EXPECTED OUTCOMES. 4. SAFETY PLAN DISCUSSED. TARAS VIRAMONTES NP Jul 15, 2020 08:52
[2020-07-15] MEDS: APRESOLINE PO SCH ×2 (08:53→14:13)
[2020-07-15] MEDS ORDERED: MIRT15TA3 PO (09:05)
[2020-07-15] MEDS ORDERED: DIVA-52 PO (09:05)
[2020-07-15] MEDS ORDERED: OLAN5TAB5 SL (09:05)
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
--- NOTE | 2020-07-15 11:56 | NUR ---
DR. CAMPBELL ATTEMPT TO CONTACT DR. CAMPBELL FOR LAB RESULT NOTIFICATION UNSUCCESSFUL, UNABLE TO LEAVE VOICEMAIL.
--- NOTE | 2020-07-15 12:10 | NUR ---
DR. CAMPBELL SPOKE TO DR. CAMPBELL REGARDING D-DIMER OF 1.41. RECEIVED ORDERS FOR VQ SCAN AND TO CANCEL DISCHARGE AT THIS TIME.
--- NOTE | 2020-07-15 12:18 | NUR ---
FAMILY CONTACT ATTEMPT TO CONTACT PT'S POA/SON, CORAZON ROMERO, TO NOTIFY OF CANCELED DISCHARGE AT THIS TIME. NO ANSWER, LEFT VOICEMAIL.
--- NOTE | 2020-07-15 12:50 | NUR ---
EDUCATION EDUCATION PROVIDED TO PATIENT REGARDING D-DIMER RESULT AND NEED FOR VQ SCAN AND IV CATHETER. PT DID NOT WANT TO MAKE DECISION UNTIL SPEAKING TO HER SON/POA, CORAZON ROMERO. AFTER PATIENT SPOKE TO SON, PATIENT MADE DECISION TO DECLINE VQ SCAN. EDUCATION REINFORCED REGARDING PRECAUTIONARY MEASURES FOR ELEVATED D-DIMER. PATIENT CONTINUED TO DECLINE TESTING.
--- NOTE | 2020-07-15 12:58 | NUR ---
DR. CAMPBELL ATTEMPT TO CONTACT DR. CAMPBELL REGARDING PATIENT DECISION, NO ANSWER, LEFT VOICEMAIL.
[2020-07-15] MEDS ORDERED: ZYPREXA ZYDIS SL STA (13:56)
[2020-07-15 14:18] VITALS: BP 142/65
[2020-07-15] MEDS ORDERED: ZYPREXA ZYDIS SL PRN ×2 (14:30)
--- NOTE | 2020-07-15 14:49 | NUR ---
DISCHARGE: PATIENT DISCHARGED TODAY WITH INTENTION FOR PLACEMENT AT [facility] IN [place]. DAUGHTER AND SON PICKED HER UP FOR TRANSPORT. PATIENT WAS GIVEN PACKET WITH DISCHARGE INSTRUCTIONS AND GIVEN 1500 MEDICATIONS. PATIENT WAS ESCORTED OFF THE UNIT BY ADAM GARCIA. PATIENT AMBULATED WITH USE OF WALKER AND WITH ALL BELONGINGS. Addendum: 07/15/20 at 1530 by CHRISSY Coto RN [facility]
[2020-07-15 14:52] VITALS: BP 142/65
--- NOTE | 2020-07-15 15:45 | NUR ---
REPORT REPORT GIVEN TO TORRES SCHAEFFER AT [facility] ([phone]).
--- NOTE | 2020-07-15 18:05 | NUR ---
RX RX CALLED INTO [facility] IN [place], [place] AT [phone]. Addendum: 07/15/20 at 1807 by CHRISSY Coto RN PER REQUEST FROM TORRES SCHAEFFER AT [facility].
--- NOTE | 2020-07-16 10:30 | PRM.DC ---
Subjective Subjective Date of Discharge: Jul 15, 2020 Time of Request to Discharge: 14:00 Subjective 84 yo F, admitted to [facility] for worsening mood/aggression. Per report, she was functional at a [facility] about 2 months ago, was taking care of herself. She had a sudden decline, stopped taking her medications, was put in a SNF. She became aggressive there, was running after other residents with a walker, going into other people's rooms and being combative. She was kicked out of the SNF, has been home with family, has been aggressive toward them. Patient responded well to medications and behavioral management with improvement of presenting symptoms, then was discharged to SNF. Exam Vital Signs Vital Signs Date Time Temp Pulse Resp B/P (MAP) Pulse Ox O2 Delivery O2 Flow Rate FiO2 07/15/20 14:52 65 20 97 Room Air 07/15/20 14:18 142/65 (90) 07/15/20 08:32 97.4 Psych/Mental Status: Mental status NL VTE VTE Risk Total Score: 3 VTE Risk Score VTE Risk: Score 0-1 = Low Risk (Aggressive mobilization; early ambulation; no VTE prophylaxis required) Score 2: Moderate Risk (Intermittent/Pneumatic Compression Device OR Lovenox/Heparin/Coumadin) Score 3-4: High Risk (Intermittent/Pneumatic Compression Device AND Lovenox/Heparin/Coumadin) Score > or =5: Highest Risk (Intermittent/Pneumatic Compression Device AND Lovenox/Heparin/Coumadin) Antico:Hep/LMWH/Coum/Xarelto: No Objective Vitals and I/O Vital Sign - Last 24 Hours 07/15/20 07/15/20 07/15/20 14:13 14:18 14:52 Pulse 65 65 Resp 20 B/P (MAP) 142/65 142/65 (90) Pulse Ox 97 O2 Delivery Room Air Intake and Output 07/16/20 07:00 Intake Total 950 ml Balance 950 ml General: Alert, Cooperative, No acute distress Psych/Mental Status: Mental status NL All Results(Lab/Rad) Current Medications Medications (Trade) Dose Ordered Sig/Danish Route PRN Reason Start Time Stop Time Status Last Admin Dose Admin Divalproex Sodium (Depakote Er) 1,000 mg HS PO 06/30/20 21:00 07/01/20 13:27 DC Gabapentin (Neurontin) 300 mg HS PO 06/30/20 21:00 07/04/20 13:08 DC 07/01/20 20:36 Miscellaneous Medication (Namenda) 10 mg BID PO 06/30/20 21:00 07/04/20 13:08 DC 07/03/20 09:22 Venlafaxine HCl (Effexor) 75 mg HS PO 06/30/20 21:00 06/30/20 21:17 DC Donepezil HCl (Aricept Odt) 10 mg DAILY PO 07/01/20 09:00 07/04/20 13:08 DC 07/03/20 09:22 Melatonin (Melatonin) 9 mg HS PRN PO INSOMNIA 06/30/20 21:00 07/02/20 02:24 DC Venlafaxine HCl (Effexor Xr) 75 mg HS PO 06/30/20 21:17 07/01/20 01:44 DC Amlodipine Besylate (Norvasc) 10 mg DAILY PO 07/01/20 09:00 07/31/20 08:59 07/05/20 09:02 Aspirin (Aspirin) 81 mg DAILY PO 07/01/20 09:00 07/31/20 08:59 07/05/20 09:02 Atorvastatin Calcium (Lipitor) 10 mg HS PO 07/01/20 21:00 07/31/20 20:59 07/05/20 20:06 Docusate Sodium (Colace) 100 mg BID PO 07/01/20 09:00 07/31/20 08:59 07/05/20 20:05 Fluticasone Propionate (Flonase) 1 sprays DAILY NS 07/01/20 09:00 07/31/20 08:59 Furosemide (Lasix) 20 mg TIW PO 07/01/20 01:30 07/01/20 01:47 DC Metoprolol Tartrate (Lopresser) 25 mg BID PO 07/01/20 09:00 07/31/20 08:59 07/05/20 20:06 Venlafaxine HCl (Effexor Xr) 75 mg DAILY24 PO 07/01/20 01:30 07/01/20 01:47 DC Melatonin (Melatonin) 9 mg HS PO 07/01/20 21:00 07/04/20 13:08 DC 07/01/20 20:36 Latanoprost (Xalatan) 1 drops HS BOTH EYES 07/01/20 21:00 07/31/20 20:59 Divalproex Sodium (Depakote Er) 500 mg HS PO 07/01/20 21:00 07/04/20 13:08 DC 07/01/20 20:37 Divalproex Sodium (Depakote Er) 250 mg 0900,1300 PO 07/01/20 13:30 07/04/20 13:08 DC 07/03/20 09:22 Pantoprazole Sodium (Protonix) 40 mg DAILY PO 07/02/20 09:00 08/01/20 08:59 07/05/20 09:02 Pantoprazole Sodium (Protonix) 40 mg OT ONCE PO 07/02/20 00:30 07/02/20 00:48 DC 07/02/20 00:24 Acetaminophen (Tylenol) 1,000 mg Q6HR PRN PO PAIN/FEVER 07/02/20 00:30 08/01/20 00:29 Hydralazine HCl (Apresoline) 25 mg TID PO 07/02/20 09:00 08/01/20 08:59 07/05/20 20:06 Cholecalciferol (Vitamin D) 6,000 unit DAILY PO 07/02/20 09:00 07/02/20 09:18 DC Nitroglycerin (Nitrostat) 0.4 mg PRN PRN SL CHEST PAIN 07/02/20 03:30 08/01/20 03:29 Cholecalciferol (Vitamin D) 5,000 unit DAILY PO 07/02/20 09:18 07/02/20 09:39 DC Cholecalciferol (Vitamin D) 1,000 unit DAILY PO 07/02/20 09:18 07/04/20 13:08 DC 07/03/20 09:22 Cholecalciferol (Vitamin D) 5,000 unit DAILY PO 07/02/20 09:39 07/04/20 13:08 DC 07/03/20 09:22 Olanzapine (Zyprexa Zydis) 2.5 mg BID SL 07/05/20 12:00 08/04/20 11:59 07/05/20 20:05 Medication Reconciliation Scheduled Amlodipine Besylate (Amlodipine Besylate), 1 TAB PO DAILY, (Reported) Aspirin (Aspirin), 1 TAB PO DAILY, (Reported) Atorvastatin 10MG (Lipitor 10MG), 1 TAB PO HS, (Reported) Divalproex Sodium (Divalproex Sodium), 250 MG PO BID Docusate Sodium (Docusate Sodium), 1 CAP PO BID, (Reported) Fluticasone Propionate (Fluticasone Propionate), 2 SPR NA DAILY, (Reported) Furosemide (Furosemide), 20 MG PO 3x weekly, (Reported) Levothyroxine Sodium (Levothyroxine Sodium), 1 TAB PO DAILY, (Reported) Metoprolol Tartrate 25MG (Lopresser 25MG), 1 TAB PO BID, (Reported) Mirtazapine (Remeron), 7.5 MG PO HS Multivitamin (Multi Vitamin Daily), 1 TAB PO QD, (Reported) Olanzapine (Zyprexa Zydis), 2.5 MG SL BID [lananoprost .005% ], 1 DROP BOTH EYES HS, (Reported) Discontinued Medications Calcitonin,Blackstone,Synthetic (Calcitonin-Blackstone), 1 SPR NA QD, (Reported) Discontinued Reason: Cancel Divalproex Sodium (Depakote Er), 2 TAB PO HS, (Reported) Discontinued Reason: No Longer Taking Donepezil Hcl (Donepezil Hcl), 1 TAB PO DAILY, (Reported) Discontinued Reason: No Longer Taking Gabapentin (Neurontin), 1 CAP PO HS, (Reported) Discontinued Reason: No Longer Taking Melatonin (Melatonin), 1 TAB PO HS, (Reported) Discontinued Reason: No Longer Taking Memantine Hcl (Namenda), 1 TAB PO BID, (Reported) Discontinued Reason: No Longer Taking Simvastatin (Simvastatin), 1 TAB PO HS, (Reported) Discontinued Reason: Cancel Venlafaxine Hcl (Venlafaxine Hcl), 75 MG PO HS, (Reported) Discontinued Reason: No Longer Taking Venlafaxine Hcl (Effexor Xr), 75 MG PO DAILY24, (Reported) Discontinued Reason: No Longer Taking Plan Assessment 84 yo F, admitted to [facility] for worsening mood/aggression. Patient responded well to medications and behavioral management; once stable, discharged to SNF. Byron I: Bipolar D/O, mixed Plan 1) D/C to SNF 2) Patient is NOT an imminent risk of harming self or others at this time 3) Patient does NOT desire continued voluntary hospitalization at this time 4) Patient does NOT meet criteria for involuntary hospitalization at this time 5) ER warnings for worsening symptoms or any other patient concern RAI FINN MD Jul 16, 2020 10:30
== END 2020-07-15 14:49 | DRG 885 ==
LOC: ER 11:36 → GP 13:22 → EEVIPCON 13:22 → GP 13:59
PROVIDERS: ADMIT Psychiatry & Neurology Psychiatry; ATTEND Psychiatry & Neurology Psychiatry
DX: F31.60 Bipolar disorder, current episode mixed, unspecified (principal); N18.9 Chronic kidney disease, unspecified; I12.9 Hypertensive chronic kidney disease with stage 1 through stage 4 chronic kidney disease, or unspecified chronic kidney disease; F03.90 Unspecified dementia, unspecified severity, without behavioral disturbance, psychotic disturbance, mood disturbance, and anxiety; R07.9 Chest pain, unspecified; R73.9 Hyperglycemia, unspecified; E55.9 Vitamin D deficiency, unspecified; D72.819 Decreased white blood cell count, unspecified; E03.9 Hypothyroidism, unspecified; E78.00 Pure hypercholesterolemia, unspecified; G62.9 Polyneuropathy, unspecified; E78.5 Hyperlipidemia, unspecified; I35.1 Nonrheumatic aortic (valve) insufficiency; K59.00 Constipation, unspecified; K59.09 Other constipation; M81.0 Age-related osteoporosis without current pathological fracture; Z87.891 Personal history of nicotine dependence; Z90.710 Acquired absence of both cervix and uterus; Z91.14 Patient's other noncompliance with medication regimen; Z95.810 Presence of automatic (implantable) cardiac defibrillator; Z87.440 Personal history of urinary (tract) infections; Z88.1 Allergy status to other antibiotic agents; Z88.0 Allergy status to penicillin; Z88.2 Allergy status to sulfonamides
CPT/HCPCS: 36415; 71045; 80048; 80053; 80061; 80164; 80307; 81000; 82140; 82306; 82550; 82553; 82607; 82746; 83036; 83735; 83880; 84100; 84145; 84436; 84439; 84443; 84484; 85025; 85379; 86592; 87426; 93005; 93306; 97150; 97166; 99285; G0378